=== PATIENT | female | born 1950 | race Caucasian/White ===

== ENCOUNTER 2017-12-24 05:27 | Emergency (ER) | payer MEDICARE ==
[~2017-12-24] VITALS: Ht 157.5 cm; Wt 75.0 kg
[~2017-12-24 05:27] MED LIST: FENO134C PO; MAXZ25 PO; PERC5TAB12 PO; PRAV40TA2 PO
[2017-12-24 05:29] VITALS: BP 194/95; PULSE 112; RESP 16; TEMP 98.7; O2SAT 98
[2017-12-24] MEDS ORDERED: SODIUM CHLORID 0.9% 500 ML INJ 500 ML IV ONE (06:00)
--- NOTE | 2017-12-24 06:14 | PD ---
HPI Chief Complaint: Abdominal Pain Time Seen by Provider: 05:34 Travel History International Travel<30 days: No Contact w/Intl Traveler<30days: No Traveled to known affect area: No History of Present Illness HPI The patient is a 67 year old female who presents to the [facility] emergency department with a history of intermittent abdominal cramps that she describes as a spasm type sensation in her intestines that began 3 days ago. The patient reports that she has not been able to move her bowels for 3 days. She reports that she does have a history of irritable bowel syndrome that is constipation predominant. The patient reports that her last bowel movement was also smaller than usual. She denies having any blood in her stool or black or tarry stools although she does report an interesting story about having maroon stool when she took Zithromax earlier in the year. The patient reports that it resolved after stopping the antibiotic and she read that this can be a side effect of the medicine. She denies ever having colonoscopy. She reports that she is fearful of the procedure. The patient reports having nausea today. She denies having any vomiting. She denies having any dysuria, urinary frequency, or urinary urgency associated with this. She reports that the abdominal pains are generalized. On review of systems otherwise, the patient denies having any known recent fevers, cough or congestion, neck pain, chest pain, shortness of breath, diarrhea or neurologic symptoms. FORMERLY [facility], [facility] Past Medical History Narrative Medical The patient's past medical history is significant for endometrial cancer status post hysterectomy in 2013, history of dyslipidemia, hypertension, irritable bowel syndrome-constipation predominant, history of mitral valve prolapse. Cancer: Yes (ENDOMETRIAL CA) Cardiovascular Problems: Yes (HX OF MITRAL VALVE PROLAPSE) High Cholesterol: Yes Diabetes: No Diminished Hearing: No Endocrine: No Gastrointestinal Disorders: Yes (IBS) Genitourinary: No Hepatitis: No Hiatal Hernia: No Hypertension: Yes Immune Disorder: No Musculoskeletal: Yes (PREVIOUS HNP CERVICAL SPINE) Neurologic: No Psychiatric: Yes (CLAUSTROPHOBIC) Reproductive: No Respiratory: No Immunizations Current: Yes Thyroid Disease: No Triglycerides - High: Yes Past Surgical History Narrative Surgical The patient's past surgical history is significant for dilation and curettage, hysterectomy. AICD: No Gynecologic Surgery: Yes (D & C) Hysterectomy: Yes Joint Replacement: No Pacemaker: No Social History Alcohol Use: No Tobacco Use: No Substance Use: No Allergies-Medications (Allergen,Severity, Reaction): Coded Allergies: sulfamethoxazole (Unverified Adverse Reaction, Intermediate, HOT FLASHES, NAUSEA, 12/24/17) trimethoprim (Unverified Adverse Reaction, Intermediate, HOT FLASHES, NAUSEA, 12/24/17) Reported Meds & Prescriptions Reported Meds & Active Scripts Active Reported Fenofibrate Micronized 134 Mg Cap 134 Mg PO HS Lipitor (Atorvastatin Calcium) 10 Mg Tab 10 Mg PO HS Aspirin 81 Mg Chew 81 Mg CHEW DAILY Review of Systems Except as stated in HPI: all other systems reviewed are Neg General / Constitutional: No: Fever Eyes: No: Visual changes HENT: No: Headaches Cardiovascular: No: Chest Pain or Discomfort Respiratory: No: Shortness of Breath Gastrointestinal: Positive: Nausea, Abdominal Pain, Constipation, Changes in Bowel Habits, No: Vomiting, Diarrhea, Indigestion, Loss of Appetite Genitourinary: No: Dysuria Musculoskeletal: No: Pain Skin: No Rash Neurologic: No: Weakness, Focal Abnormalities, Change in Mentation, Slurred Speech, Sensory Disturbance Psychiatric: No: Depression Endocrine: No: Polydipsia Hematologic/Lymphatic: No: Easy Bruising Physical Exam Narrative General: The patient is a well-developed well-nourished female in no acute distress. Head and Neck exam: Head is normocephalic atraumatic. Eyes: EOMI, pupils are equal round and reactive to light. Nose: Midline septum with pink mucous membranes Mouth: Dentition unremarkable. Moist mucus membranes. Posterior oropharynx is not erythematous. No tonsillar hypertrophy. Uvula midline. Airway patent. Neck: No palpable lymphadenopathy. No nuchal rigidity. No thyromegaly. Cardiovascular: Regular rate and rhythm without murmurs, gallops, or rubs. No pulse deficit to the extremities on simultaneous auscultation and palpation of her radial artery. Lungs: Clear to auscultation bilaterally. No wheezes, rhonchi, or rales. Abdomen: Soft, with tenderness reported on palpation of the suprapubic area, no other tenderness on palpation of the other quadrants of the abdomen. Normal bowel sounds are audible. No tenderness on palpation of McBurney's point. No guarding, rebound, or rigidity. Negative Torres sign. Extremities: No clubbing, cyanosis, or edema. 2+ pulses in all 4 extremities. No calf tenderness on palpation. Back: No spinous process tenderness to palpation. No costovertebral angle tenderness to palpation. Neurologic Exam: Grossly nonfocal. Skin Exam: No rash noted. Intact skin that is warm and dry. RECTAL EXAM: No masses or tenderness, no stool is present in the rectal vault. No palpable fecal impaction. The patient has mucus noted in the vault that is Hemoccult tested and noted to have streaks that are positive on Hemoccult testing. Data Data Last Documented VS Vital Signs Date Time Temp Pulse Resp B/P (MAP) Pulse Ox O2 Delivery O2 Flow Rate FiO2 12/24/17 10:15 12/24/17 07:35 104 20 98 Room Air 12/24/17 05:29 98.7 Orders Orders Electrocardiogram (12/24/17 05:46) Complete Blood Count With Diff (12/24/17 05:46) Comprehensive Metabolic Panel (12/24/17 05:46) C-Reactive Protein (Crp) (12/24/17 05:46) Lipase (12/24/17 05:46) Urinalysis - C+S If Indicated (12/24/17 05:46) Magnesium (Mg) (12/24/17 05:46) Iv Access Insert/Monitor (12/24/17 05:46) Ecg Monitoring (12/24/17 05:46) Oximetry (12/24/17 05:46) Sodium Chlorid 0.9% 500 Ml Inj (Ns 500 M (12/24/17 06:00) Ct Abd/Pel W Iv Contrast(Rout) (12/24/17 06:06) Iohexol 350 Inj (Omnipaque 350 Inj) (12/24/17 08:03) Ed Discharge Order (12/24/17 09:39) Labs Laboratory Tests Test 12/24/17 06:08 12/24/17 07:30 White Blood Count 10.9 TH/MM3 Red Blood Count 4.41 MIL/MM3 Hemoglobin 12.9 GM/DL Hematocrit 37.7 % Mean Corpuscular Volume 85.4 FL Mean Corpuscular Hemoglobin 29.3 PG Mean Corpuscular Hemoglobin Concent 34.3 % Red Cell Distribution Width 14.1 % Platelet Count 447 TH/MM3 Mean Platelet Volume 7.9 FL Neutrophils (%) (Auto) 72.8 % Lymphocytes (%) (Auto) 13.8 % Monocytes (%) (Auto) 9.5 % Eosinophils (%) (Auto) 3.0 % Basophils (%) (Auto) 0.9 % Neutrophils # (Auto) 8.0 TH/MM3 Lymphocytes # (Auto) 1.5 TH/MM3 Monocytes # (Auto) 1.0 TH/MM3 Eosinophils # (Auto) 0.3 TH/MM3 Basophils # (Auto) 0.1 TH/MM3 CBC Comment DIFF FINAL Differential Comment Blood Urea Nitrogen 13 MG/DL Creatinine 0.90 MG/DL Random Glucose 105 MG/DL Total Protein 8.1 GM/DL Albumin 3.9 GM/DL Calcium Level 9.6 MG/DL Magnesium Level 2.0 MG/DL Alkaline Phosphatase 120 U/L Aspartate Amino Transf (AST/SGOT) 51 U/L Alanine Aminotransferase (ALT/SGPT) 55 U/L Total Bilirubin 0.4 MG/DL Sodium Level 141 MEQ/L Potassium Level 3.6 MEQ/L Chloride Level 106 MEQ/L Carbon Dioxide Level 25.1 MEQ/L Anion Gap 10 MEQ/L Estimat Glomerular Filtration Rate 63 ML/MIN C-Reactive Protein 4.24 MG/DL Lipase 222 U/L Urine Color LIGHT-YELLOW Urine Turbidity CLEAR Urine pH 6.0 Urine Specific [place] 1.005 Urine Protein NEG mg/dL Urine Glucose (UA) NEG mg/dL Urine Ketones NEG mg/dL Urine Occult Blood NEG Urine Nitrite NEG Urine Bilirubin NEG Urine Urobilinogen LESS THAN 2.0 MG/DL Urine Leukocyte Esterase NEG Urine WBC LESS THAN 1 /hpf Urine Squamous Epithelial Cells <1 /hpf Microscopic Urinalysis Comment CULT NOT INDICATED MDM Medical Decision Making Medical Screen Exam Complete: Yes Emergency Medical Condition: Yes Medical Record Reviewed: Yes Differential Diagnosis Constipation, versus fecal impaction, versus diverticulitis, versus diverticulosis, versus colon cancer, versus AVM malformation Narrative Course During the course of the patient's emergency department visit, the patient's history, examination, and differential diagnosis were reviewed with the patient. The patient was placed on a registered nurse cardiac with oximetry and frequent blood pressure monitoring. The patient had IV access obtained and blood work sent for analysis. CT scan of the abdomen and pelvis has been ordered. The patient had an EKG done on arrival that shows a sinus rhythm heart rate of 95, QRS duration is 84 ms, QTC [address] segment elevation. T waves are inverted in V1, V2, V3, lead III. The patient was initially provided normal saline at 500 mL bolus 1. The patient's laboratory and imaging studies were pending at the conclusion of my shift. The patient's case was checked out to the oncoming emergency physician to disposition the patient based on the conclusion of her workup. [facility] Point of Care Internal Pos. & Neg. Controls: Passed Fecal Specimen Occult Blood: Positive Diagnosis Primary Impression: Abdominal pain Qualified Codes: R10.84 - Generalized abdominal pain Additional Impression: Constipation Qualified Codes: K59.00 - Constipation, unspecified Uma Morgan MD December 24, 2017 06:14
[2017-12-24 06:43] LABS: BASOPHIL # 0.1 TH/MM3 (0-0.2); BASOPHIL % 0.9 % (0.0-2.0); EOSINOPHIL # 0.3 TH/MM3 (0-0.4); HEMATOCRIT 37.7 % (35.0-46.0); HEMOGLOBIN 12.9 GM/DL (11.6-15.3); LYMPH % 13.8 % (9.0-44.0); LYMPHOCYTE # 1.5 TH/MM3 (1.0-4.8); MEAN CELL VOLUME 85.4 FL (80.0-100.0); MEAN CORPUSCULAR HEMOGLOBIN 29.3 PG (27.0-34.0); MEAN CORPUSCULAR HGB CONC 34.3 % (32.0-36.0); MEAN PLATELET VOLUME 7.9 FL (7.0-11.0); MONO % 9.5 % (0.0-8.0); NEUT % 72.8 % (16.0-70.0); PLATELET COUNT 447 TH/MM3 (150-450); RED BLOOD COUNT 4.41 MIL/MM3 (4.00-5.30); RED CELL DISTRIBUTION WIDTH 14.1 % (11.6-17.2); WHITE BLOOD COUNT 10.9 TH/MM3 (4.0-11.0)
[2017-12-24 06:59] LABS: ALBUMIN 3.9 GM/DL (3.4-5.0); ALT (GPT) 55 U/L (10-53); AST (GOT) 51 U/L (15-37); BICARBONATE 25.1 MEQ/L (21.0-32.0); BLOOD UREA NITROGEN 13 MG/DL (7-18); CALCIUM 9.6 MG/DL (8.5-10.1); CHLORIDE 106 MEQ/L (98-107); GLOMERULAR FILTRATION RATE 63 ML/MIN (>89); GLUCOSE,RANDOM 105 MG/DL (74-106); SODIUM (NA) 141 MEQ/L (136-145)
[2017-12-24 07:02] LABS: ALKALINE PHOSPHATASE 120 U/L (45-117); C-REACTIVE PROTEIN 4.24 MG/DL (0.00-0.30); TOTAL BILIRUBIN ADULT 0.4 MG/DL (0.2-1.0); TOTAL PROTEIN 8.1 GM/DL (6.4-8.2)
[2017-12-24 07:35] VITALS: BP 195/100; PULSE 104; RESP 20; O2SAT 97; O2SAT 98
[2017-12-24] MEDS ORDERED: ASPI-516 CHEW (07:39)
[2017-12-24] MEDS ORDERED: LIPI10TA PO (07:39)
[2017-12-24] MEDS ORDERED: FENO134C PO (07:39)
[2017-12-24] MEDS ORDERED: IOHEXOL 350 MG/ML 10 ML VIAL (for RAD DIAG) IVCONTRAST ONE (08:03)
[2017-12-24 08:12] LABS: BILIRUBIN, URINE NEG (NEG); BLOOD, URINE NEG (NEG); GLUCOSE,URINE NEG (NEG); KETONE, URINE NEG (NEG); NITRITE,URINE NEG (NEG); SQUAMOUS EPITHELIAL CELL URINE <1 /hpf (0-5); URINE COLOR LIGHT-YELLOW (YELLW/STRAW); URINE LEUKOCYTE ESTERASE NEG (NEG)
--- NOTE | 2017-12-24 08:18 | RADRPT ---
EXAM DATE: 12/24/2017 8:01 AM EDT AGE/SEX: 67 years / Female INDICATIONS: Possible obstruction, abdominal cramping CLINICAL DATA: This is the patient's initial encounter. Patient reports that signs and symptoms have been present for 3 days and indicates a pain score of 4/10. MEDICAL/SURGICAL HISTORY: Cardiovascular disease. Hypertension. Irritable bowel syndrome. en dometrial cancer Hysterectomy. ORAL CONTRAST: No oral contrast ingested. RADIATION DOSE: 7.75 CTDI (mGy) COMPARISON: None available. TECHNIQUE: Multiple contiguous axial images were obtained through the abdomen and pelvis following b olus infusion of 94 ml Omnipaque 350 (iohexol) nonionic water-soluble contrast as a single exam dos e. No oral contrast ingested. Using automated exposure control and adjustment of the mA and/or kV ac cording to patient size, the radiation dose was kept as low as reasonably achievable to obtain optima l diagnostic quality images. FINDINGS: Lower Lungs: The visualized lower lungs are clear. Liver: The liver contains multiple low-density masses most consistent with metastatic disease. The la rgest measures 2.9 x 2.6 cm within the medial segment of the left lobe. Multiple other smaller masses are seen. There is no dilation of the biliary tree. Spleen: Homogeneous density without enlargement. Pancreas: Unremarkable without mass or calcification. Kidneys: Normal in size and shape. No evidence of mass or hydronephrosis. Adrenal Glands: Unremarkable. Aorta: The aorta and proximal iliac vessels are grossly unremarkable without aneurysmal dilation. Bowel/Mesentery: Circumferential wall thickening within the splenic flexure likely secondary to prim hilda carcinoma. Proximal to this lesion is some mild dilatation of the transverse colon. Minimal adjac ent inflammatory changes. There is diverticulosis of the colon. Abdominal Wall: Intact. Retroperitoneum: No evidence of adenopathy in the retrocrural, para-aortic, or deep pelvic regions. Bladder: Contours are smooth. Reproductive Organs: No abnormal masses or calcifications seen. Inguinal: The inguinal region is unremarkable without evidence of adenopathy. Bony Structures: Unremarkable. CONCLUSION: 1. Circumferential wall thickening within the splenic flexure concerning for colonic adenocarcinoma. Colonoscopy recommended. 2. Multiple metastatic lesions throughout the liver. 3. Diverticulosis of the colon. Electronically signed by: Manpreet Funez MD 12/24/2017 8:17 AM EDT
--- NOTE | 2017-12-24 09:42 | PD ---
Physical Exam Narrative GENERAL: 67-year-old female in no apparent distress SKIN: Focused skin assessment warm/dry. HEAD: Atraumatic. Normocephalic. EYES: Pupils equal and round. No scleral icterus. No injection or drainage. ENT: No nasal bleeding or discharge. Mucous membranes pink and moist. NECK: Trachea midline. No JVD. CARDIOVASCULAR: Regular rate and rhythm. RESPIRATORY: No accessory muscle use. No increased effort GASTROINTESTINAL: Abdomen soft, non-tender, nondistended MUSCULOSKELETAL: No obvious deformities. No clubbing. No cyanosis. No edema. NEUROLOGICAL: Awake and alert. No obvious cranial nerve deficits. Motor grossly within normal limits. Normal speech. PSYCHIATRIC: Appropriate mood and affect; insight and judgment normal. Data Data Last Documented VS Vital Signs Date Time Temp Pulse Resp B/P (MAP) Pulse Ox O2 Delivery O2 Flow Rate FiO2 12/24/17 07:35 104 20 195/100 (131) 98 Room Air 12/24/17 05:29 98.7 Orders Orders Electrocardiogram (12/24/17 05:46) Complete Blood Count With Diff (12/24/17 05:46) Comprehensive Metabolic Panel (12/24/17 05:46) C-Reactive Protein (Crp) (12/24/17 05:46) Lipase (12/24/17 05:46) Urinalysis - C+S If Indicated (12/24/17 05:46) Magnesium (Mg) (12/24/17 05:46) Iv Access Insert/Monitor (12/24/17 05:46) Ecg Monitoring (12/24/17 05:46) Oximetry (12/24/17 05:46) Sodium Chlorid 0.9% 500 Ml Inj (Ns 500 M (12/24/17 06:00) Ct Abd/Pel W Iv Contrast(Rout) (12/24/17 06:06) Iohexol 350 Inj (Omnipaque 350 Inj) (12/24/17 08:03) Ed Discharge Order (12/24/17 09:39) Labs Laboratory Tests Test 12/24/17 06:08 12/24/17 07:30 White Blood Count 10.9 TH/MM3 Red Blood Count 4.41 MIL/MM3 Hemoglobin 12.9 GM/DL Hematocrit 37.7 % Mean Corpuscular Volume 85.4 FL Mean Corpuscular Hemoglobin 29.3 PG Mean Corpuscular Hemoglobin Concent 34.3 % Red Cell Distribution Width 14.1 % Platelet Count 447 TH/MM3 Mean Platelet Volume 7.9 FL Neutrophils (%) (Auto) 72.8 % Lymphocytes (%) (Auto) 13.8 % Monocytes (%) (Auto) 9.5 % Eosinophils (%) (Auto) 3.0 % Basophils (%) (Auto) 0.9 % Neutrophils # (Auto) 8.0 TH/MM3 Lymphocytes # (Auto) 1.5 TH/MM3 Monocytes # (Auto) 1.0 TH/MM3 Eosinophils # (Auto) 0.3 TH/MM3 Basophils # (Auto) 0.1 TH/MM3 CBC Comment DIFF FINAL Differential Comment Blood Urea Nitrogen 13 MG/DL Creatinine 0.90 MG/DL Random Glucose 105 MG/DL Total Protein 8.1 GM/DL Albumin 3.9 GM/DL Calcium Level 9.6 MG/DL Magnesium Level 2.0 MG/DL Alkaline Phosphatase 120 U/L Aspartate Amino Transf (AST/SGOT) 51 U/L Alanine Aminotransferase (ALT/SGPT) 55 U/L Total Bilirubin 0.4 MG/DL Sodium Level 141 MEQ/L Potassium Level 3.6 MEQ/L Chloride Level 106 MEQ/L Carbon Dioxide Level 25.1 MEQ/L Anion Gap 10 MEQ/L Estimat Glomerular Filtration Rate 63 ML/MIN C-Reactive Protein 4.24 MG/DL Lipase 222 U/L Urine Color LIGHT-YELLOW Urine Turbidity CLEAR Urine pH 6.0 Urine Specific [place] 1.005 Urine Protein NEG mg/dL Urine Glucose (UA) NEG mg/dL Urine Ketones NEG mg/dL Urine Occult Blood NEG Urine Nitrite NEG Urine Bilirubin NEG Urine Urobilinogen LESS THAN 2.0 MG/DL Urine Leukocyte Esterase NEG Urine WBC LESS THAN 1 /hpf Urine Squamous Epithelial Cells <1 /hpf Microscopic Urinalysis Comment CULT NOT INDICATED MDM Supervised Visit with ERIC: No Interpretation(s) Last 24 hours Impressions Abdomen/Pelvis CT 12/24/17 0606 Signed Impressions: CONCLUSION: 1. Circumferential wall thickening within the splenic flexure concerning for c olonic adenocarcinoma. Colonoscopy recommended. 2. Multiple metastatic lesions throughout the liver. 3. Diverticulosis of the colon. Narrative Course Signed over to me to follow CT and reevaluate. CT shows concerning area for adenocarcinoma with metastatic liver lesions. Discussed with colorectal surgeon who will facilitate outpatient follow-up for biopsy and further care. Patient updated and given copy of CT report with at bedside. She agrees to outpatient plan of care. Physician Communication Physician Communication dr yañez states to have follow in office, will coordinate biopsy and further care Diagnosis Primary Impression: Colon wall thickening Additional Impression: Lesion of liver Referrals: Maksim Yañez MD call for appointment Patient Instructions: General Instructions Additional Instruction: return as needed, follow with dr yañez for initiation of your workup, keep blood pressure log Med/Other Pt SpecificInfo: No Change to Meds Disposition: 01 DISCHARGE HOME Condition: Stable Sangeeta Barnard MD December 24, 2017 09:42
--- NOTE | 2017-12-24 14:04 | EKG ---
Date Performed: 12/24/2017 Time Performed: 06:30:19 PTAGE: 67 years EKG: Sinus rhythm NONSPECIFIC ST & T-WAVE ABNORMALITY BORDERLINE ECG NO PREVIOUS TRACING DOCTOR: Cheko Vo Interpretating Date/Time 12/27/2017 07:43:01
== END 2017-12-24 10:16 | disposition home or self-care (01) ==
LOC: NEPE 05:27
DX: K63.89 Other specified diseases of intestine (principal); K76.9 Liver disease, unspecified; K57.30 Diverticulosis of large intestine without perforation or abscess without bleeding; K58.9 Irritable bowel syndrome, unspecified; E78.00 Pure hypercholesterolemia, unspecified; R94.31 Abnormal electrocardiogram [ECG] [EKG]
CPT/HCPCS: 74177; 80053; 81001; 83690; 83735; 85025; 86140; 93005; 96360; 99285; J7040; Q9967

== ENCOUNTER 2017-12-25 15:35 | Inpatient (IN) | payer MEDICARE ==
[~2017-12-25] VITALS: Ht 157.5 cm; Wt 80.9 kg
[~2017-12-25 15:35] MED LIST changes: +ASPI-516 CHEW; +LIPI10TA PO; -MAXZ25 PO; -PERC5TAB12 PO; -PRAV40TA2 PO
[2017-12-25 15:41] VITALS: BP 200/102; PULSE 116; RESP 18; TEMP 98.5; O2SAT 97
[2017-12-25] MEDS ORDERED: SODIUM CHLOR 0.9% 1000 ML INJ 1,000 ML IV SCH (16:09)
[2017-12-25] MEDS ORDERED: ONDANSETRON ODT 4 MG TAB PO ONE (16:15)
--- NOTE | 2017-12-25 16:16 | PD ---
HPI Chief Complaint: GI Complaint Time Seen by Provider: 15:56 Travel History International Travel<30 days: No Contact w/Intl Traveler<30days: No Traveled to known affect area: No History of Present Illness HPI Patient is a 67-year-old female who returns to the hospital for evaluation of abdominal pain with constipation. Patient reports that for the past 5 days, she has been having abdominal pain and has been constipated. Patient reports that she was seen in the emergency room yesterday, reports that she was told that she had metastatic liver disease as well as concerns for colonic adenocarcinoma, reports that after her ER visit, she made an appointment Dr. Yañez with colorectal surgery, reports that she has an appointment tomorrow with him. Reports that since her discharge, she has not been feeling any better. Reports that she took mag citrate to help with a bowel movement and ended up nauseous and having multiple episodes of vomiting today. Patient reports overall decreased p.o. intake due to her abdominal pain. Patient reports concerns for possible obstruction. Patient does have past history of hysterectomy in the past due to endometrial cancer. Patient denies any fever chills, reports normal bowel movements at baseline. PFSH Past Medical History Cancer: Yes (ENDOMETRIAL CA) Cardiovascular Problems: Yes (HX OF MITRAL VALVE PROLAPSE) High Cholesterol: Yes Diabetes: No Diminished Hearing: No Endocrine: No Gastrointestinal Disorders: Yes (IBS) Genitourinary: No Hepatitis: No Hiatal Hernia: No Hypertension: Yes Immune Disorder: No Musculoskeletal: Yes (PREVIOUS HNP CERVICAL SPINE) Neurologic: No Psychiatric: Yes (CLAUSTROPHOBIC) Reproductive: No Respiratory: No Immunizations Current: Yes Thyroid Disease: No Triglycerides - High: Yes ?: Not Past Surgical History AICD: No Gynecologic Surgery: Yes (D & C) Hysterectomy: Yes Joint Replacement: No Pacemaker: No Other Surgery: Yes Social History Alcohol Use: No Tobacco Use: No Substance Use: No Allergies-Medications (Allergen,Severity, Reaction): Coded Allergies: sulfamethoxazole (Unverified Adverse Reaction, Intermediate, HOT FLASHES, NAUSEA, 12/24/17) trimethoprim (Unverified Adverse Reaction, Intermediate, HOT FLASHES, NAUSEA, 12/24/17) Reported Meds & Prescriptions Reported Meds & Active Scripts Active Reported Fenofibrate Micronized 134 Mg Cap 134 Mg PO HS Lipitor (Atorvastatin Calcium) 10 Mg Tab 10 Mg PO HS Aspirin 81 Mg Chew 81 Mg CHEW DAILY Review of Systems General / Constitutional: No: Fever Eyes: No: Visual changes HENT: No: Headaches Cardiovascular: No: Chest Pain or Discomfort Respiratory: No: Shortness of Breath Gastrointestinal: Positive: Nausea, Vomiting, Abdominal Pain, Constipation Genitourinary: No: Dysuria Musculoskeletal: No: Pain Skin: No Rash Neurologic: No: Weakness Psychiatric: No: Depression Endocrine: No: Polydipsia Hematologic/Lymphatic: No: Easy Bruising Physical Exam Narrative GENERAL: moderate distress SKIN: Focused skin assessment warm/dry. HEAD: Atraumatic. Normocephalic. EYES: Pupils equal and round. No scleral icterus. No injection or drainage. ENT: No nasal bleeding or discharge. Mucous membranes pink and moist. NECK: Trachea midline. No JVD. CARDIOVASCULAR: Regular rate and rhythm. No murmur appreciated. RESPIRATORY: No accessory muscle use. Clear to auscultation. Breath sounds equal bilaterally. GASTROINTESTINAL: Abdomen soft, non-tender, nondistended. Hepatic and splenic margins not palpable. RECTAL EXAM: performed with RN at bedside, patient with no stool in rectal vault , no fecal impaction MUSCULOSKELETAL: No obvious deformities. No clubbing. No cyanosis. No edema. NEUROLOGICAL: Awake and alert. No obvious cranial nerve deficits. Motor grossly within normal limits. Normal speech. PSYCHIATRIC: Appropriate mood and affect; insight and judgment normal. Data Data Last Documented VS Vital Signs Date Time Temp Pulse Resp B/P (MAP) Pulse Ox O2 Delivery O2 Flow Rate FiO2 12/25/17 17:45 96 15 179/84 (115) 99 Room Air 12/25/17 15:41 98.5 Orders Orders Complete Blood Count With Diff (12/25/17 16:09) Comprehensive Metabolic Panel (12/25/17 16:09) Lipase (12/25/17 16:09) Lactic Acid (12/25/17 16:09) Prothrombin Time / Inr (Pt) (12/25/17 16:09) Act Partial Throm Time (Ptt) (12/25/17 16:09) Iv Access Insert/Monitor (12/25/17 16:09) Ecg Monitoring (12/25/17 16:09) Oximetry (12/25/17 16:09) Sodium Chlor 0.9% 1000 Ml Inj (Ns 1000 M (12/25/17 16:09) Sodium Chloride 0.9% Flush (Ns Flush) (12/25/17 16:15) Ondansetron Odt (Zofran Odt) (12/25/17 16:15) Abdomen, Kub Only (12/25/17 ) Morphine Inj (Morphine Inj) (12/25/17 17:30) Metoclopramide Inj (Reglan Inj) (12/25/17 17:30) Admit To Inpatient (12/25/17 ) Vital Signs (Adult) LUCIA.Q4H (12/25/17 18:06) Activity Oob With Assistance (12/25/17 18:06) Inpatient Certification (12/25/17 ) Npo After Midnight W/ Po Meds (12/25/17 Dinner) Labs Laboratory Tests Test 12/25/17 16:30 White Blood Count 12.0 TH/MM3 Red Blood Count 4.73 MIL/MM3 Hemoglobin 13.6 GM/DL Hematocrit 40.7 % Mean Corpuscular Volume 86.1 FL Mean Corpuscular Hemoglobin 28.8 PG Mean Corpuscular Hemoglobin Concent 33.4 % Red Cell Distribution Width 14.1 % Platelet Count 525 TH/MM3 Mean Platelet Volume 7.7 FL Neutrophils (%) (Auto) 84.8 % Lymphocytes (%) (Auto) 8.9 % Monocytes (%) (Auto) 5.6 % Eosinophils (%) (Auto) 0.2 % Basophils (%) (Auto) 0.5 % Neutrophils # (Auto) 10.1 TH/MM3 Lymphocytes # (Auto) 1.1 TH/MM3 Monocytes # (Auto) 0.7 TH/MM3 Eosinophils # (Auto) 0.0 TH/MM3 Basophils # (Auto) 0.1 TH/MM3 CBC Comment DIFF FINAL Differential Comment Prothrombin Time 10.7 SEC Prothromb Time International Ratio 1.1 RATIO Activated Partial Thromboplast Time 23.3 SEC Blood Urea Nitrogen 15 MG/DL Creatinine 0.85 MG/DL Random Glucose 102 MG/DL Total Protein 8.7 GM/DL Albumin 4.2 GM/DL Calcium Level 9.7 MG/DL Alkaline Phosphatase 113 U/L Aspartate Amino Transf (AST/SGOT) 37 U/L Alanine Aminotransferase (ALT/SGPT) 45 U/L Total Bilirubin 0.4 MG/DL Sodium Level 141 MEQ/L Potassium Level 3.9 MEQ/L Chloride Level 102 MEQ/L Carbon Dioxide Level 26.7 MEQ/L Anion Gap 12 MEQ/L Estimat Glomerular Filtration Rate 67 ML/MIN Lactic Acid Level 1.3 mmol/L Lipase 191 U/L MDM Medical Decision Making Medical Screen Exam Complete: Yes Emergency Medical Condition: Yes Medical Record Reviewed: Yes Interpretation(s) Vital Signs Date Time Temp Pulse Resp B/P (MAP) Pulse Ox O2 Delivery O2 Flow Rate FiO2 12/25/17 15:41 98.5 116 18 200/102 (134) 97 Differential Diagnosis constipation, metastatic cancer, small bowel obstruction, mesenteric ischemia Narrative Course During the course of the patients emergency department visit, the patients history, examination, and differential diagnosis were reviewed with the patient. The patient was placed on a edge trimmer with oximetry and frequent blood pressure monitoring. The patient had an IV access obtained and blood work sent for analysis. Vital Signs Date Time Temp Pulse Resp B/P (MAP) Pulse Ox O2 Delivery O2 Flow Rate FiO2 12/25/17 15:41 98.5 116 18 200/102 (134) 97 A rectal exam was performed to evaluate for possible fecal impaction - there was no stool in rectal vault The patient was initially provided IVF as well as zofran odt. The patients laboratory studies were reviewed and remarkable for Laboratory Tests Test 12/25/17 16:30 White Blood Count 12.0 TH/MM3 (4.0-11.0) Red Blood Count 4.73 MIL/MM3 (4.00-5.30) Hemoglobin 13.6 GM/DL (11.6-15.3) Hematocrit 40.7 % (35.0-46.0) Mean Corpuscular Volume 86.1 FL (80.0-100.0) Mean Corpuscular Hemoglobin 28.8 PG (27.0-34.0) Mean Corpuscular Hemoglobin Concent 33.4 % (32.0-36.0) Red Cell Distribution Width 14.1 % (11.6-17.2) Platelet Count 525 TH/MM3 (150-450) Mean Platelet Volume 7.7 FL (7.0-11.0) Neutrophils (%) (Auto) 84.8 % (16.0-70.0) Lymphocytes (%) (Auto) 8.9 % (9.0-44.0) Monocytes (%) (Auto) 5.6 % (0.0-8.0) Eosinophils (%) (Auto) 0.2 % (0.0-4.0) Basophils (%) (Auto) 0.5 % (0.0-2.0) Neutrophils # (Auto) 10.1 TH/MM3 (1.8-7.7) Lymphocytes # (Auto) 1.1 TH/MM3 (1.0-4.8) Monocytes # (Auto) 0.7 TH/MM3 (0-0.9) Eosinophils # (Auto) 0.0 TH/MM3 (0-0.4) Basophils # (Auto) 0.1 TH/MM3 (0-0.2) CBC Comment DIFF FINAL Differential Comment Prothrombin Time 10.7 SEC (9.8-11.6) Prothromb Time International Ratio 1.1 RATIO Activated Partial Thromboplast Time 23.3 SEC (24.3-30.1) Blood Urea Nitrogen 15 MG/DL (7-18) Creatinine 0.85 MG/DL (0.50-1.00) Random Glucose 102 MG/DL (74-106) Total Protein 8.7 GM/DL (6.4-8.2) Albumin 4.2 GM/DL (3.4-5.0) Calcium Level 9.7 MG/DL (8.5-10.1) Alkaline Phosphatase 113 U/L (45-117) Aspartate Amino Transf (AST/SGOT) 37 U/L (15-37) Alanine Aminotransferase (ALT/SGPT) 45 U/L (10-53) Total Bilirubin 0.4 MG/DL (0.2-1.0) Sodium Level 141 MEQ/L (136-145) Potassium Level 3.9 MEQ/L (3.5-5.1) Chloride Level 102 MEQ/L (98-107) Carbon Dioxide Level 26.7 MEQ/L (21.0-32.0) Anion Gap 12 MEQ/L (5-15) Estimat Glomerular Filtration Rate 67 ML/MIN (>89) Lactic Acid Level 1.3 mmol/L (0.4-2.0) Lipase 191 U/L (73-393) Radiology studies were reviewed and remarkable for Last Impressions Abdomen X-Ray 12/25/17 0000 Signed Impressions: CONCLUSION: Unremarkable bowel gas pattern. Reports that she is more comfortable after the pain meds were given, I am hesitant to obtain another CT abdomen and pelvis given she had one yesterday. Plan to admit her to the hospital for intractable abdominal pain, I did review case with Dr. Truong who accepts patient to his service Diagnosis Primary Impression: Intractable abdominal pain Admitting Information Admitting Physician Requests: Ilda Rocha DO December 25, 2017 16:16
[2017-12-25 16:54] LABS: AUTOMATED NEUTROPHIL # 10.1 TH/MM3 (1.8-7.7); BASOPHIL # 0.1 TH/MM3 (0-0.2); BASOPHIL % 0.5 % (0.0-2.0); EOSINOPHIL % 0.2 % (0.0-4.0); HEMATOCRIT 40.7 % (35.0-46.0); HEMOGLOBIN 13.6 GM/DL (11.6-15.3); LYMPH % 8.9 % (9.0-44.0); LYMPHOCYTE # 1.1 TH/MM3 (1.0-4.8); MEAN CELL VOLUME 86.1 FL (80.0-100.0); MEAN CORPUSCULAR HEMOGLOBIN 28.8 PG (27.0-34.0); MEAN CORPUSCULAR HGB CONC 33.4 % (32.0-36.0); MEAN PLATELET VOLUME 7.7 FL (7.0-11.0); MONO % 5.6 % (0.0-8.0); MONOCYTE # 0.7 TH/MM3 (0-0.9); NEUT % 84.8 % (16.0-70.0); PLATELET COUNT 525 TH/MM3 (150-450); RED BLOOD COUNT 4.73 MIL/MM3 (4.00-5.30); RED CELL DISTRIBUTION WIDTH 14.1 % (11.6-17.2)
[2017-12-25 17:06] LABS: INTERNATIONAL NORMALIZED RATIO 1.1 RATIO; PROTHROMBIN TIME - PATIENT 10.7 SEC (9.8-11.6)
[2017-12-25] MEDS: SODIUM CHLORIDE 0.9% FLUSH 10 ML FLUSH IV FLUSH PRN ×2 (17:19→21:23)
[2017-12-25] MEDS ORDERED: METOCLOPRAMIDE HCL 10 MG/2 ML VIAL IV PUSH ONE (17:30)
[2017-12-25] MEDS ORDERED: MORPHINE SULFATE 4 MG/ML INJ IV PUSH ONE (17:30)
[2017-12-25 17:38] LABS: ALBUMIN 4.2 GM/DL (3.4-5.0); ALT (GPT) 45 U/L (10-53); AST (GOT) 37 U/L (15-37); BICARBONATE 26.7 MEQ/L (21.0-32.0); BLOOD UREA NITROGEN 15 MG/DL (7-18); CALCIUM 9.7 MG/DL (8.5-10.1); CHLORIDE 102 MEQ/L (98-107); CREATININE 0.85 MG/DL (0.50-1.00); GLOMERULAR FILTRATION RATE 67 ML/MIN (>89); GLUCOSE,RANDOM 102 MG/DL (74-106); SODIUM (NA) 141 MEQ/L (136-145)
[2017-12-25 17:40] LABS: ALKALINE PHOSPHATASE 113 U/L (45-117); TOTAL BILIRUBIN ADULT 0.4 MG/DL (0.2-1.0); TOTAL PROTEIN 8.7 GM/DL (6.4-8.2)
[2017-12-25 17:45] VITALS: BP 179/84; PULSE 96; RESP 15; O2SAT 99
--- NOTE | 2017-12-25 17:55 | RADRPT ---
EXAM DATE: 12/25/2017 5:38 PM EDT AGE/SEX: 67 years / Female INDICATIONS: Abdominal pain, possible obstruction. CLINICAL DATA: This is the patient's sequela encounter. Patient reports that signs and symptoms have been present for 4 - 6 days and indicates a pain score of 10/10. MEDICAL/SURGICAL HISTORY: Carcinoma, colon. Carcinoma, breast. IBS. None. COMPARISON: No prior [facility] exams available for comparison. ] FINDINGS: The abdominal bowel gas pattern is normal. No abnormal masses, calcifications, or organomegaly is s een. The osseous structures are unremarkable. CONCLUSION: Unremarkable bowel gas pattern. Electronically signed by: Martin Holguin MD 12/25/2017 5:54 PM EDT
[2017-12-25] MEDS ORDERED: DEXT 5%-NACL 0.45% 1000 ML INJ 1,000 ML IV SCH (18:30)
[2017-12-25] MEDS ORDERED: METHYLNALTREXONE BROMIDE 12 MG/0.6 ML VIAL SQ ONE (18:30)
--- NOTE | 2017-12-25 18:31 | HHI.HP ---
[facility] Physician Wendy Andrade MD Admission Diagnosis Intractable abdominal pain Diagnoses: Chief Complaint: Abdominal pain Travel History International Travel<30 Days: No Contact w/Intl Traveler <30 Da: No Traveled to Known Affected Are: No History of Present Illness 67-year-old white female being admitted for intractable abdominal pain. Patient was in her usual state of health being discharged from the emergency department yesterday for abdominal pain secondary to suspected colorectal cancer. She went home to try to deal with abdominal pain but it worsened in intensity and when she tried to ingest anything other than water she would vomit it including some V8 tomato juice. She tried also some MiraLAX and local magnesia and some citrate and she also vomited this as well. She has not eaten anything for a few days and still has no appetite. Denies any fevers. Still has not had a bowel movement, has not had a bowel movement since last Saturday which is about 5 days ago. Patient describes her pain at worst out of a 6/10 intensity and describes it as a gas-like pain. She denies ever having had a colonoscopy done even though she reports that her has reminded her multiple times. Denies any family history of colorectal cancer. Had a CT scan performed yesterday and ER visit which showed lesions suspicious for colorectal cancer with possible liver metastases. Had a outpatient appointment scheduled Dr. Yañez tomorrow but obviously will not be able to make it due to presenting to the ER was intractable symptoms. Had x-ray done of her abdomen today which shows no free air. Patient has a history of endometrial cancer which was managed with hysterectomy back in 2013 with no adjunctive treatment needed. Review of Systems Except as stated in HPI: all other systems reviewed are Neg Past Family Social History Past Medical History HTN HYL endometrial CA Allergies: Coded Allergies: sulfamethoxazole (Unverified Adverse Reaction, Intermediate, HOT FLASHES, NAUSEA, 12/24/17) trimethoprim (Unverified Adverse Reaction, Intermediate, HOT FLASHES, NAUSEA, 12/24/17) Social History smoked only as a teenager, retired [employer] Physical Exam Vital Signs Vital Signs Date Time Temp Pulse Resp B/P (MAP) Pulse Ox O2 Delivery O2 Flow Rate FiO2 12/25/17 17:45 96 15 179/84 (115) 99 Room Air 12/25/17 15:41 98.5 116 18 200/102 (134) 97 Physical Exam VS: afebrile GENERAL: Middle-aged white female, sitting up in bed, awake and alert, no acute distress SKIN: Warm and dry. EYES: No scleral icterus. No injection or drainage. ENT: No nasal bleeding or discharge. Mucous membranes pink and moist. CARDIOVASCULAR: Regular rate and rhythm. no murmurs RESPIRATORY: No accessory muscle use. Clear to auscultation. Breath sounds equal bilaterally. GASTROINTESTINAL: Abdomen soft, mild to moderate tenderness to palpation over epigastrium and right sided quadrants Extremities: No clubbing, cyanosis, or edema. No obvious deformities. MUSCULOSKELETAL: adequate muscle bulk and tone for age and habitus NEUROLOGICAL: Awake and alert. No obvious cranial nerve deficits. No facial droop nor slurred speech noted. PSYCHIATRIC: Appropriate mood and affect; insight and judgment normal. Laboratory Laboratory Tests Test 12/25/17 16:30 White Blood Count 12.0 Red Blood Count 4.73 Hemoglobin 13.6 Hematocrit 40.7 Mean Corpuscular Volume 86.1 Mean Corpuscular Hemoglobin 28.8 Mean Corpuscular Hemoglobin Concent 33.4 Red Cell Distribution Width 14.1 Platelet Count 525 Mean Platelet Volume 7.7 Neutrophils (%) (Auto) 84.8 Lymphocytes (%) (Auto) 8.9 Monocytes (%) (Auto) 5.6 Eosinophils (%) (Auto) 0.2 Basophils (%) (Auto) 0.5 Neutrophils # (Auto) 10.1 Lymphocytes # (Auto) 1.1 Monocytes # (Auto) 0.7 Eosinophils # (Auto) 0.0 Basophils # (Auto) 0.1 CBC Comment DIFF FINAL Differential Comment Prothrombin Time 10.7 Prothromb Time International Ratio 1.1 Activated Partial Thromboplast Time 23.3 Blood Urea Nitrogen 15 Creatinine 0.85 Random Glucose 102 Total Protein 8.7 Albumin 4.2 Calcium Level 9.7 Alkaline Phosphatase 113 Aspartate Amino Transf (AST/SGOT) 37 Alanine Aminotransferase (ALT/SGPT) 45 Total Bilirubin 0.4 Sodium Level 141 Potassium Level 3.9 Chloride Level 102 Carbon Dioxide Level 26.7 Anion Gap 12 Estimat Glomerular Filtration Rate 67 Lactic Acid Level 1.3 Lipase 191 Result Diagram: 12/25/17 1630 12/25/17 1630 Imaging Last Impressions Abdomen X-Ray 12/25/17 0000 Signed Impressions: CONCLUSION: Unremarkable bowel gas pattern. Caprini VTE Risk Assessment Caprini VTE Risk Assessment: Mod/High Risk (score >= 2) VTE Pharm Contraindication: Caprini Risk Assessment Model Point Value = 1 Point Value = 2 Point Value = 3 Point Value = 5 Age 41-60 Minor surgery BMI > 25 kg/m2 Swollen legs Varicose veins or History of unexplained or recurrent spontaneous Oral contraceptives or hormone replacement Sepsis (< 1 month) Serious lung disease, including pneumonia (< 1 month) Abnormal pulmonary function Acute myocardial infarction Congestive heart failure (< 1 month) History of inflammatory bowel disease Medical patient at bed rest Age 61-74 Arthroscopic surgery Major open surgery (> 45 min) Laparoscopic surgery (> 45 min) Malignancy Confined to bed (> 72 hours) Immobilizing plaster cast Central venous access Age >= 75 History of VTE Family history of VTE Factor V Leiden Prothrombin [id number] Lupus anticoagulant Anticardiolipin antibodies Elevated serum homocysteine Heparin-induced thrombocytopenia Other congenital or acquired thrombophilia Stroke (< 1 month) Elective arthroplasty Hip, pelvis, or leg fracture Acute spinal cord injury (< 1 month) Prophylaxis Regimen Total Risk Factor Score Risk Level Prophylaxis Regimen 0-1 Low Early ambulation 2 Moderate Order ONE of the following: *Sequential Compression Device (SCD) *Heparin 5000 units SQ BID 3-4 Higher Order ONE of the following medications: *Heparin 5000 units SQ TID *Enoxaparin/Lovenox 40 mg SQ daily (WT < 150 kg, CrCl > 30 mL/min) *Enoxaparin/Lovenox 30 mg SQ daily (WT < 150 kg, CrCl > 10-29 mL/min) *Enoxaparin/Lovenox 30 mg SQ BID (WT < 150 kg, CrCl > 30 mL/min) AND/OR *Sequential Compression Device (SCD) 5 or more Highest Order ONE of the following medications: *Heparin 5000 units SQ TID (Preferred with Epidurals) *Enoxaparin/Lovenox 40 mg SQ daily (WT < 150 kg, CrCl > 30 mL/min) *Enoxaparin/Lovenox 30 mg SQ daily (WT < 150 kg, CrCl > 10-29 mL/min) *Enoxaparin/Lovenox 30 mg SQ BID (WT < 150 kg, CrCl > 30 mL/min) AND *Sequential Compression Device (SCD) Assessment and Plan Assessment and Plan Intractable nausea and postprandial vomiting - likely secondary to possible adenocarcinoma lives with metastases with now possible obstruction (not evident on CT scan yesterday at that time) - discussed case with Dr. Yañez over the phone, plans to see the patient tomorrow while hospitalized. I will make patient n.p.o. after midnight. - We will start D5 half-normal saline - Zofran ODT as needed nausea abdominal pain - likely same etiology as above - abd x ray negative for any free air on my independent review - [place] 5 as needed pain, IV morphine as needed breakthrough pain, relist or to minimize any further constipating side effects possible CRC w/ mets - consulting oncology Constipation -Could be secondary to tumor versus primary constipation -We will obtain TSH, Relistor or as above continue home lipitor SCDs for now, anticoagulation can be started once cleared w/ surgery Physician Certification 2 Midnight Certification Type: Admission for Inpatient Services Order for Inpatient Services The services are ordered in accordance with Medicare regulations or non- Medicare payer requirements, as applicable. In the case of services not specified as inpatient-only, they are appropriately provided as inpatient services in accordance with the 2-midnight benchmark. Estimated LOS (days): 3 3 days is the estimated time the patient will need to remain in the hospital, assuming treatment plan goals are met and no additional complications. Post-Hospital Plan: Not yet determined Lennox Mccoy MD December 25, 2017 18:30
[2017-12-25 19:08] VITALS: BP 148/70
[2017-12-25 20:40] VITALS: BP 169/85; PULSE 92; RESP 16; TEMP 98.5; O2SAT 96
[2017-12-25] MEDS ORDERED: FENOFIBRATE MICRONIZED 134 MG PO SCH (21:00)
[2017-12-25] MEDS: MORPHINE SULFATE 4 MG/ML INJ IV PUSH PRN (21:21)
--- NOTE | 2017-12-25 21:21 | MB ---
cc: Yen Lora MD, Ruby Anne E MD Masoodi, Hammad M DATE: 12/25/2017 REFERRING PHYSICIAN: Dr. Lennox Mccoy. CHIEF COMPLAINT: Dr. Mccoy requests a consultation for Mrs. Doe regarding suspected metastatic colorectal cancer with history of endometrial cancer. HISTORY OF PRESENT ILLNESS: Mrs. Doe is a 67-year-old woman, well known patient to Dr. Azul Crowley. She is diagnosed with a stage I, grade 1 endometrial adenocarcinoma. She has had definitive surgery. She has been followed up. She has had no evidence of recurrent disease. Her last appointment with Dr. Crowley was 12/11. Her Pap smear was completed and was negative for any intraepithelial lesion or malignancies. Mrs. Doe has had chronic constipation. She has declined screening colonoscopy. She has never had a colonoscopy. She reports no specific change in her irritable bowel syndrome, until about this weekend when she did not have a bowel movement. She did have a bowel movement the next day and developed intermittent cramping in the abdomen. She presented to the emergency room and was seen by Dr. Morgan on 12/24. She had an imaging study CT scan of the abdomen and pelvis that showed circumferential wall thickening in the splenic flexure concerning for colonic adenocarcinoma. There were multiple metastatic lesions throughout the liver and diverticulosis in the colon. She was discharged home to followup as an outpatient. She has established herself with Dr. Yañez. However, before her appointment with Dr. Yañez, she developed nausea and vomiting in the last 24 hours. She describes sipping the magnesium citrate and, despite this, she vomited it up. She tried to drink a small V8 juice and vomited that up. She has had nothing by mouth over the last 24 hours. She denies any fevers, chills or night sweats. She relates no new changes. The rest of her review of systems is negative. PAST MEDICAL HISTORY: Hypercholesterolemia, hypertension, history of a stage I endometrial cancer status post definitive surgery, irritable bowel, mitral valve prolapse. PAST SURGICAL HISTORY: D and C procedure, hysterectomy. SOCIAL HISTORY: Denies any tobacco, alcohol or illicit drug use. FAMILY HISTORY: Significant for father who was diagnosed with lung cancer and of lung cancer in his 80s. Mother is alive at age 92 with irritable bowel and chronic constipation. ALLERGIES: SULFAMETHOXAZOLE, TRIMETHOPRIM. CURRENT MEDICATIONS: 1. Atorvastatin. 2. Tricor 3. Zofran p.r.n. 4. Morphine sulfate p.r.n. 5. [place]. PHYSICAL EXAMINATION: VITAL SIGNS: Temperature 98.5, heart rate 85, respiratory rate 16, blood pressure 148/70, saturation 99%. GENERAL: Ms. Doe is a well-developed, well-nourished woman, who looks younger than stated age. HEENT: Her pupils are round, reactive to light and accommodation. Oropharynx is clear. NECK: Supple. LUNGS: Clear to auscultation. CARDIOVASCULAR: Reveals normal rate and rhythm. ABDOMEN: Mildly distended, soft, nontender. Bowel sounds are present. LOWER EXTREMITIES: With no edema. NEUROLOGIC: Nonfocal. LABORATORY DATA: Significant for mild reactive thrombocytosis. Platelet count of 525,000, hemoglobin 13.6, MCV 86.1, white blood cell count 12.0. Comprehensive metabolic panel is normal. Liver function is normal. C-reactive protein was elevated from 529. TSH was normal. ASSESSMENT AND PLAN: Mrs. Doe is a 67-year-old woman with history of hypertension, hypercholesterolemia and irritable bowel. She has never had a screening colonoscopy. She has had a history of endometrial cancer, status post definitive surgery and is in remission. She presented with worsening constipation and abdominal pain and was found to have a splenic flexure mass in addition to metastatic disease to the liver. We discussed the above findings consistent with metastatic colon cancer as primary. I recommend a CT-guided biopsy of the liver lesion in order to identify and confirm metastatic disease. We discussed in the differential metastatic endometrial cancer, although less likely. We will consult gastroenterology in light of her intractable nausea and vomiting. The CT scan was negative for obstructive symptoms. Her abdomen is not more distended than previous. However, she has developed nausea and vomiting associated with just sips of fluid. Gastroenterology will be consulted. She has a thrombocytosis with no anemia. In light of the ascending colon cancer, iron studies will be obtained. CT scan of the chest to rule out metastatic disease to lung will be performed. Further recommendations depend on the final pathology. A baseline CEA will be obtained. Dr. Yañez has been consulted by the primary team. I defer to Dr. Yañez with regard to alleviation of the obstruction. She is advised to stop drinking as we would like to avoid all vomiting and aspiration. IV fluid support is offered. MD PAYAL Berry/ , 08:48 PM , 09:20 PM
[2017-12-25] MEDS: DEXT 5%-NACL 0.9% 1000 ML INJ 1,000 ML IV SCH (21:22)
[2017-12-25] MEDS: ATORVASTATIN 10 MG TAB PO SCH (21:22)
[2017-12-25] MEDS: FENOFIBRATE 145 MG TAB PO SCH (21:22)
[2017-12-25] MEDS: ONDANSETRON ODT 4 MG TAB PO PRN (21:22)
[2017-12-26] VITALS: BP 148/88; PULSE 80; RESP 17; TEMP 98; O2SAT 97
[2017-12-26] MEDS: D5-NS + KCL 20 MEQ INJ 1,000 ML IV SCH (00:15)
[2017-12-26] MEDS: PCA - TOTAL MG MORPHINE DELIVERED PER SHIFT SCH (00:50)
[2017-12-26 05:30] VITALS: BP 140/89; PULSE 74; RESP 17; TEMP 98.2; O2SAT 98
[2017-12-26 07:24] LABS: % SATURATION IRON PROFILE 17.5 % (20-50); IRON (FE) 56 MCG/DL (50-170); TOTAL IRON BINDING CAPACITY 321 MCG/DL (250-450)
[2017-12-26 07:27] LABS: FERRITIN 129 NG/ML (8-252)
[2017-12-26] MEDS: ONDANSETRON ODT 4 MG TAB PO PRN (08:09)
[2017-12-26] MEDS: MORPHINE SULFATE 4 MG/ML INJ IV PUSH PRN (08:10)
[2017-12-26] MEDS: DEXT 5%-NACL 0.9% 1000 ML INJ 1,000 ML IV SCH ×2 (08:14→19:54)
[2017-12-26 08:35] VITALS: BP 145/80; PULSE 79; RESP 20; TEMP 98.1; O2SAT 95
[2017-12-26] MEDS ORDERED: METHYLNALTREXONE BROMIDE 12 MG/0.6 ML VIAL SQ SCH (09:00)
--- NOTE | 2017-12-26 10:01 | PD.CONS ---
HPI History of Present Illness This is a 67 year old F with PMH significant for endometrial cancer S/P hysterectomy and hyperlipidemia who presented to the ER twice this week. Initially she presented on Saturday with complaints of abdominal pain and constipation. Initially abdominal pain was located on both sides of her abdomen , intermittent, described as a spasm or contraction like pain. She has IBS- constipation and has had issues with abdominal bloating and constipation for a long time so ignored her symptoms. She takes Miralax daily. Pt had a CT scan done in the ER on Saturday which revealed circumferential wall thickening within the splenic flexure concerning for colonic adenocarcinoma and multiple metastatic lesions throughout the liver. She was discharged home, according to ER notes, the ER doctor spoke with Dr. Yañez and pt had a scheduled outpatient follow up. Pt returned to the ER yesterday because of vomiting, states vomiting began after taking multiple laxatives to try and have a BM. She is unable to even keep a sip of water down. Oncology and colorectal has been consulted as well as our service. Oncology is planning on liver biopsy and colorectal is planning on doing flex sig or colonoscopy today. Pt denies any unintentional weight loss. Had one isolated episode of blood on the toilet paper when she wiped after straining to have a BM but denies any other hematochezia or melena. Has never had EGD or colonoscopy. Denies family history significant for colon cancer. Denies ETOH and smoking. 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[employer] Denies ETOH (Camila Ramsay) Review of Systems Gastrointestinal: COMPLAINS OF: Abdominal pain, Constipation, Nausea, Vomiting , Swelling of Abdomen, DENIES: Black stools, Bloody stools, Diarrhea, Difficulty Swallowing, Heartburn (Camila Ramsay) GI Exam Vitals I&O Vital Signs Date Time Temp Pulse Resp B/P (MAP) Pulse Ox O2 Delivery O2 Flow Rate FiO2 12/26/17 08:35 98.1 79 20 145/80 (101) 95 12/26/17 05:30 98.2 74 17 140/89 (106) 98 12/26/17 00:00 98.0 80 17 148/88 (108) 97 12/25/17 20:40 98.5 92 16 169/85 (113) 96 12/25/17 19:08 85 16 148/70 (96) 100 12/25/17 17:45 96 15 179/84 (115) 99 Room Air 12/25/17 15:41 98.5 116 18 200/102 (134) 97 I/O 12/25/17 12/25/17 12/25/17 12/26/17 12/26/17 12/26/17 07:00 15:00 23:00 07:00 15:00 23:00 Intake Total 0 ml 600 ml Balance 0 ml 600 ml Intake Oral 0 ml 600 ml # Voids 1 2 # Bowel Movements 0 0 Imaging Last Impressions Abdomen X-Ray 12/25/17 0000 Signed Impressions: CONCLUSION: Unremarkable bowel gas pattern. Laboratory Test 12/25/17 16:30 12/26/17 05:35 White Blood Count 12.0 TH/MM3 Red Blood Count 4.73 MIL/MM3 Hemoglobin 13.6 GM/DL Hematocrit 40.7 % Mean Corpuscular Volume 86.1 FL Mean Corpuscular Hemoglobin 28.8 PG Mean Corpuscular Hemoglobin Concent 33.4 % Red Cell Distribution Width 14.1 % Platelet Count 525 TH/MM3 Mean Platelet Volume 7.7 FL Neutrophils (%) (Auto) 84.8 % Lymphocytes (%) (Auto) 8.9 % Monocytes (%) (Auto) 5.6 % Eosinophils (%) (Auto) 0.2 % Basophils (%) (Auto) 0.5 % Neutrophils # (Auto) 10.1 TH/MM3 Lymphocytes # (Auto) 1.1 TH/MM3 Monocytes # (Auto) 0.7 TH/MM3 Eosinophils # (Auto) 0.0 TH/MM3 Basophils # (Auto) 0.1 TH/MM3 CBC Comment DIFF FINAL Differential Comment Prothrombin Time 10.7 SEC Prothromb Time International Ratio 1.1 RATIO Activated Partial Thromboplast Time 23.3 SEC Blood Urea Nitrogen 15 MG/DL Creatinine 0.85 MG/DL Random Glucose 102 MG/DL Total Protein 8.7 GM/DL Albumin 4.2 GM/DL Calcium Level 9.7 MG/DL Alkaline Phosphatase 113 U/L Aspartate Amino Transf (AST/SGOT) 37 U/L Alanine Aminotransferase (ALT/SGPT) 45 U/L Total Bilirubin 0.4 MG/DL Sodium Level 141 MEQ/L Potassium Level 3.9 MEQ/L Chloride Level 102 MEQ/L Carbon Dioxide Level 26.7 MEQ/L Anion Gap 12 MEQ/L Estimat Glomerular Filtration Rate 67 ML/MIN Lactic Acid Level 1.3 mmol/L Lipase 191 U/L Thyroid Stimulating Hormone 3rd Gen 2.290 uIU/ML Iron Level 56 MCG/DL Total Iron Binding Capacity 321 MCG/DL Percent Iron Saturation 17.5 % Ferritin 129 NG/ML Carcinoembryonic Antigen 623.5 NG/ML Physical Examination HEENT: Normocephalic; atraumatic CHEST: Even/unlabored CARDIAC: RRR ABDOMEN: Distended, soft, nontender, bowel sounds active EXTREMITIES: No clubbing, cyanosis, or edema. SKIN: Normal; no rash; no jaundice. WHEEL LACER AND TRUER: Alert and oriented times three. (Camila Ramsay) Assessment and Plan Plan Assessment: - Nausea and vomiting- symptoms began after patient took multiple laxatives because she has not had a BM in a few days. States small one on Saturday. History of IBS-C and takes Miralax daily. Has never had EGD - Circumferential wall thickening within the splenic flexure concerning for colonic adenocarcinoma- with elevated CEA at 623.5 Pt has never had colonoscopy before. Denies family history of colon cancer. Had one isolated episode of blood on toilet paper when she wiped after straining to have a BM, denies any other hematochezia or unintentional weight loss Per pt, seen by Dr. Yañez this morning who is planning on flex sig or colonoscopy this afternoon - Multiple metastatic lesions throughout the liver seen on CT Seen by Oncology who has ordered liver biopsy Plan: Colonoscopy per colorectal surgery Oncology following- ordered liver biopsy EGD tomorrow Obtain consent NPO after MN NGT to LIWS if intractable emesis Further recommendations based on findings of above Pt has been seen and examined by myself and Dr. Santamaria and this note is written on his behalf (Camila Ramsay) Physician Comments Seen and examined with joe BETANCOURT in progress for colon mass by Dr Ritter. Liver biopsy ordered by Dr Scruggs. EGD planned tomorrow if still having upper gi symptoms. Discussed with pt. and family at the bedside. Thank you (rEyn Santamaria MD) Camila Ramsay December 26, 2017 10:01 Eryn Santamaria MD December 26, 2017 12:59
--- NOTE | 2017-12-26 10:53 | PD.ONC.PN ---
Subjective Subjective Remarks Afebrile overnight. Patient feeling very constipated. she had an enema but nothing came out. very anxious about everything. Objective Data Date Time Temp Pulse Resp B/P (MAP) Pulse Ox O2 Delivery O2 Flow Rate FiO2 12/26/17 08:35 98.1 79 20 145/80 (101) 95 12/26/17 05:30 98.2 74 17 140/89 (106) 98 12/26/17 00:00 98.0 80 17 148/88 (108) 97 12/25/17 20:40 98.5 92 16 169/85 (113) 96 12/25/17 19:08 85 16 148/70 (96) 100 12/25/17 17:45 96 15 179/84 (115) 99 Room Air 12/25/17 15:41 98.5 116 18 200/102 (134) 97 12/26/17 12/26/17 12/26/17 07:00 15:00 23:00 Intake Total 600 ml Balance 600 ml Result Diagram: 12/25/17 1630 12/25/17 1630 Laboratory Results Laboratory Tests Test 12/25/17 16:30 12/26/17 05:35 White Blood Count 12.0 TH/MM3 Red Blood Count 4.73 MIL/MM3 Hemoglobin 13.6 GM/DL Hematocrit 40.7 % Mean Corpuscular Volume 86.1 FL Mean Corpuscular Hemoglobin 28.8 PG Mean Corpuscular Hemoglobin Concent 33.4 % Red Cell Distribution Width 14.1 % Platelet Count 525 TH/MM3 Mean Platelet Volume 7.7 FL Neutrophils (%) (Auto) 84.8 % Lymphocytes (%) (Auto) 8.9 % Monocytes (%) (Auto) 5.6 % Eosinophils (%) (Auto) 0.2 % Basophils (%) (Auto) 0.5 % Neutrophils # (Auto) 10.1 TH/MM3 Lymphocytes # (Auto) 1.1 TH/MM3 Monocytes # (Auto) 0.7 TH/MM3 Eosinophils # (Auto) 0.0 TH/MM3 Basophils # (Auto) 0.1 TH/MM3 CBC Comment DIFF FINAL Differential Comment Prothrombin Time 10.7 SEC Prothromb Time International Ratio 1.1 RATIO Activated Partial Thromboplast Time 23.3 SEC Blood Urea Nitrogen 15 MG/DL Creatinine 0.85 MG/DL Random Glucose 102 MG/DL Total Protein 8.7 GM/DL Albumin 4.2 GM/DL Calcium Level 9.7 MG/DL Alkaline Phosphatase 113 U/L Aspartate Amino Transf (AST/SGOT) 37 U/L Alanine Aminotransferase (ALT/SGPT) 45 U/L Total Bilirubin 0.4 MG/DL Sodium Level 141 MEQ/L Potassium Level 3.9 MEQ/L Chloride Level 102 MEQ/L Carbon Dioxide Level 26.7 MEQ/L Anion Gap 12 MEQ/L Estimat Glomerular Filtration Rate 67 ML/MIN Lactic Acid Level 1.3 mmol/L Lipase 191 U/L Thyroid Stimulating Hormone 3rd Gen 2.290 uIU/ML Iron Level 56 MCG/DL Total Iron Binding Capacity 321 MCG/DL Percent Iron Saturation 17.5 % Ferritin 129 NG/ML Carcinoembryonic Antigen 623.5 NG/ML Administered Medications Medications (Trade) Dose Ordered Sig/Bethany Route PRN Reason Start Time Stop Time Status Last Admin Dose Admin Sodium Chloride (NS Flush) 2 ml UNSCH PRN IV FLUSH FLUSH AFTER USING IV ACCESS 12/25/17 16:15 12/25/17 21:23 Atorvastatin Calcium (Lipitor) 10 mg HS PO 12/25/17 21:00 12/25/17 21:22 Ondansetron HCl (Zofran Odt) 4 mg Q6H PRN PO nausea 12/25/17 18:30 12/26/17 08:09 Fenofibrate (Tricor) 145 mg HS PO 12/25/17 21:00 12/25/17 21:22 Morphine Sulfate (Morphine Inj) 4 mg Q3H PRN IV PUSH breakthru pain control 12/25/17 18:30 12/26/17 08:10 Dextrose/Sodium Chloride 1,000 ml @ 84 mls/hr [id number] IV 12/25/17 21:00 12/26/17 08:14 Objective Remarks GENERAL: Middle aged female, sitting up in bed in nad SKIN: Warm and dry. HEAD: Normocephalic. EYES: No injection or drainage. NECK: Supple, trachea midline. CARDIOVASCULAR: Regular rate and rhythm RESPIRATORY: Breath sounds equal bilaterally. No accessory muscle use. GASTROINTESTINAL: Abdomen distended, nontender. +BS EXTREMITIES: No cyanosis NEUROLOGICAL: No obvious focal deficit. Awake, alert, and oriented x3. Assessment/Plan Assessment 67y/o female with suspected metastatic colorectal cancer with history of endometrial cancer. h/o stage I, grade 1 endometrial adenocarcinoma s/p definitive surgery w/no evidence of recurrent disease. h/o chronic constipation. mitral valve prolapse. Plan 1. await CT guided biopsy of liver lesion, obtain CT chest for staging. 2. continue IVF 3. continue supportive care Attending Statement The exam, history, and the medical decision-making described in the above note were completed with the assistance of the mid-level provider. I reviewed and agree with the findings presented. I attest that I had a irth-ea-armr encounter with the patient on the same day, and personally performed and documented my assessment and findings in the medical record. Discussed with Dr. Yañez. Pending surgery for obstruction. CT guided liver biopsy deferred to see if liver bx could be done during surgery. CEA elevated suggest colon cancer origin. Follow and further recommendations pending pathology. Suki Kaminski December 26, 2017 10:53 Yen Lora MD December 26, 2017 16:45
--- NOTE | 2017-12-26 11:35 | HHI.PR ---
Subjective Remarks Pain is controlled with current pain treatments. Plan for colonoscopy today. Possible partial colectomy. Liver biopsy on hold. Objective Vital Signs Date Time Temp Pulse Resp B/P (MAP) Pulse Ox O2 Delivery O2 Flow Rate FiO2 12/26/17 08:35 98.1 79 20 145/80 (101) 95 12/26/17 05:30 98.2 74 17 140/89 (106) 98 12/26/17 00:00 98.0 80 17 148/88 (108) 97 12/25/17 20:40 98.5 92 16 169/85 (113) 96 12/25/17 19:08 85 16 148/70 (96) 100 12/25/17 17:45 96 15 179/84 (115) 99 Room Air 12/25/17 15:41 98.5 116 18 200/102 (134) 97 I/O 12/25/17 12/25/17 12/25/17 12/26/17 12/26/17 12/26/17 07:00 15:00 23:00 07:00 15:00 23:00 Intake Total 0 ml 600 ml Balance 0 ml 600 ml Intake Oral 0 ml 600 ml # Voids 1 2 # Bowel Movements 0 0 Result Diagram: 12/25/17 1630 12/25/17 1630 Imaging Last Impressions Abdomen X-Ray 12/25/17 0000 Signed Impressions: CONCLUSION: Unremarkable bowel gas pattern. Objective Remarks GENERAL: NAD, A&Ox3 HEAD: Normocephalic. NECK: Supple, trachea midline. No lymphadenopathy. EYES: No scleral icterus. No injection or drainage. CARDIOVASCULAR: Regular rate and rhythm without murmurs, gallops, or rubs. RESPIRATORY: Breath sounds equal bilaterally. No accessory muscle use. GASTROINTESTINAL: Abdomen soft, nondistended. Mild to moderate abdominal tenderness. MUSCULOSKELETAL: No cyanosis, or edema. SKIN: Warm and dry. NEURO: No focal neurological deficitis. A/P Problem List: (1) Intractable abdominal pain ICD Code: R10.9 - Unspecified abdominal pain Status: Acute (2) Colonic mass ICD Code: K63.9 - Disease of intestine, unspecified (3) Liver mass ICD Code: R16.0 - Hepatomegaly, not elsewhere classified Assessment and Plan 67-year-old female admitted for irretractable pain related to colon mass Irretractable abdominal pain Colon mass Liver mass Plan for colonoscopy today Pain is improved with narcotics Follow patient clinically Patient have a partial colectomy if needed Tissue samples needed for diagnosis DVT prophylaxis Sanjay Moran MD December 26, 2017 11:35
[2017-12-26] MEDS ORDERED: SUCCINYLCHOLINE CHLORIDE 100 MG/5 ML SYRINGE IV PUSH ONE (12:00)
[2017-12-26] MEDS ORDERED: PROPOFOL 200 MG/20 ML AMP IV ONE (12:00)
[2017-12-26] MEDS ORDERED: LIDOCAINE HCL 1% PF 5 ML SYRINGE OTHER ONE (12:00)
[2017-12-26] MEDS ORDERED: ePHEDrine/NS 25 MG/5 ML SYRINGE IV ONE (12:00)
[2017-12-26] MEDS ORDERED: ROCURONIUM INJ 50 MG/5 ML SYRINGE IV PUSH ONE (12:00)
[2017-12-26] MEDS ORDERED: ONDANSETRON HCL 4 MG/2 ML VIAL IV ONE (12:00)
[2017-12-26] MEDS ORDERED: DEXAMETHASONE SOD PHOS 4 MG/ML VIAL IV ONE (12:00)
[2017-12-26] MEDS ORDERED: LACTATED RINGER'S 1000 ML INJ 1,000 ML IV ONE (12:00)
[2017-12-26 12:44] VITALS: BP 160/77; PULSE 74; RESP 20; TEMP 98.3; O2SAT 97
[2017-12-26 16:00] VITALS: BP 167/82; PULSE 86; RESP 20; TEMP 98.3; O2SAT 97
[2017-12-26] MEDS: ATORVASTATIN 10 MG TAB PO SCH (19:53)
[2017-12-26] MEDS: FENOFIBRATE 145 MG TAB PO SCH (19:54)
[2017-12-26 20:49] VITALS: BP 158/80; PULSE 85; RESP 20; TEMP 99; O2SAT 97
[2017-12-26] MEDS ORDERED: fentaNYL CITRATE 250 MCG/5 ML AMP ONE (20:55)
[2017-12-26] MEDS ORDERED: ceFAZolin INJ 1,000 MG VIAL ONE (21:30)
[2017-12-26] MEDS ORDERED: metroNIDAZOLE 500 MG INJ 100 ML IV ONE (21:30)
[2017-12-26] MEDS ORDERED: SUGAMMADEX SODIUM 200 MG/2 ML VIAL IV PUSH ONE (22:51)
[2017-12-26] MEDS ORDERED: ENALAPRILAT 1.25 MG/ML VIAL IV PUSH PRN (23:15)
[2017-12-26] MEDS ORDERED: BENZOCAINE 6 MG/MENTHOL 10 MG LOZENGE BUCCAL PRN (23:15)
[2017-12-26] MEDS ORDERED: POTASSIUM CHLOR 40 MEQ PREMIX 100 ML IV PRN (23:15)
[2017-12-26] MEDS ORDERED: Post-op Orders (for Pharmacy) XX ONE (23:15)
[2017-12-26] MEDS ORDERED: ENALAPRILAT 2.5 MG/2 ML VIAL IV PUSH PRN (23:15)
[2017-12-26] MEDS ORDERED: POTASSIUM CHLOR 20 MEQ PREMIX 100 ML IV PRN (23:15)
[2017-12-26] MEDS ORDERED: ACETAMINOPHEN/HYDROcodone 325 MG/5 MG TAB PO PRN ×2 (23:15)
[2017-12-26] MEDS ORDERED: NALOXONE HCL 0.4 MG/ML AMP IV PUSH PRN (23:15)
[2017-12-26] MEDS ORDERED: DO NOT ADM ANY ANTICOAGULANT DRUGS PRN (23:23)
[2017-12-26] MEDS ORDERED: *morphine SULFATE 4 MG/ML PERIprocedure ONLY ONE ×2 (23:33→23:47)
[2017-12-27] VITALS (21 sets, daily range): BP systolic 110–142; BP diastolic 57–71; PULSE 73–122; RESP 16–20; TEMP 98.3–100.6; O2SAT 90–99
[2017-12-27] MEDS ORDERED: metroNIDAZOLE 500 MG INJ 100 ML IV SCH
[2017-12-27] MEDS ORDERED: *morphine SULFATE 4 MG/ML PERIprocedure ONLY ONE (00:12)
[2017-12-27] MEDS: MORPHINE SULFATE 30 MG/30 ML PCA IV SCH (00:21)
[2017-12-27] MEDS: KETOROLAC TROMETHAMINE 30 MG/ML (IVP) VIAL IVP PRN ×3 (00:45→21:39)
[2017-12-27 04:25] LABS: BASOPHIL % 0.1 % (0.0-2.0); HEMATOCRIT 34.9 % (35.0-46.0); HEMOGLOBIN 11.7 GM/DL (11.6-15.3); LYMPH % 4.3 % (9.0-44.0); LYMPHOCYTE # 0.6 TH/MM3 (1.0-4.8); MEAN CELL VOLUME 87.1 FL (80.0-100.0); MEAN CORPUSCULAR HEMOGLOBIN 29.1 PG (27.0-34.0); MEAN CORPUSCULAR HGB CONC 33.4 % (32.0-36.0); MEAN PLATELET VOLUME 7.7 FL (7.0-11.0); MONO % 9.5 % (0.0-8.0); MONOCYTE # 1.2 TH/MM3 (0-0.9); NEUT % 86.1 % (16.0-70.0); PLATELET COUNT 389 TH/MM3 (150-450); RED CELL DISTRIBUTION WIDTH 14.1 % (11.6-17.2); WHITE BLOOD COUNT 12.8 TH/MM3 (4.0-11.0)
[2017-12-27 05:05] LABS: ALBUMIN 2.9 GM/DL (3.4-5.0); ALKALINE PHOSPHATASE 72 U/L (45-117); ALT (GPT) 30 U/L (10-53); AST (GOT) 39 U/L (15-37); BICARBONATE 21.4 MEQ/L (21.0-32.0); BLOOD UREA NITROGEN 11 MG/DL (7-18); CALCIUM 7.9 MG/DL (8.5-10.1); CHLORIDE 107 MEQ/L (98-107); CREATININE 0.92 MG/DL (0.50-1.00); GLOMERULAR FILTRATION RATE 61 ML/MIN (>89); GLUCOSE,RANDOM 222 MG/DL (74-106); SODIUM (NA) 139 MEQ/L (136-145); TOTAL BILIRUBIN ADULT 0.3 MG/DL (0.2-1.0)
[2017-12-27] MEDS: metroNIDAZOLE 500 MG INJ 100 ML IV SCH ×3 (05:52→21:27)
[2017-12-27] MEDS: D5-NS + KCL 20 MEQ INJ 1,000 ML IV SCH ×3 (05:52→15:02)
[2017-12-27] MEDS: PCA - TOTAL MG MORPHINE DELIVERED PER SHIFT SCH ×3 (06:00→22:00)
[2017-12-27] MEDS: METOCLOPRAMIDE HCL 10 MG/2 ML VIAL IVS SCH ×2 (08:45→21:27)
[2017-12-27] MEDS: PANTOPRAZOLE SODIUM 40 MG VIAL IVP SCH (08:45)
[2017-12-27] MEDS: PANTOPRAZOLE SOD 40 MG DELAYED RELEASE TAB PO SCH (08:45)
--- NOTE | 2017-12-27 11:12 | HHI.PR ---
Subjective Remarks Patient is status post exploratory laparotomy with left-sided partial colectomy and mass removal. Colon cancer is suspected. Patient is doing well postop. Mild nausea. Objective Vital Signs Date Time Temp Pulse Resp B/P (MAP) Pulse Ox O2 Delivery O2 Flow Rate FiO2 12/27/17 09:16 20 12/27/17 08:08 99 Nasal Cannula 2.00 12/27/17 08:00 92 12/27/17 08:00 99.1 105 16 130/58 (82) 93 12/27/17 06:00 18 12/27/17 03:00 98.6 88 18 118/60 (79) 97 12/27/17 03:00 78 12/27/17 02:05 18 12/27/17 01:00 80 12/27/17 01:00 98.3 73 18 142/66 (91) 98 12/27/17 00:30 98.1 87 18 147/73 (97) 99 Nasal Cannula 3 12/27/17 00:21 14 12/27/17 00:15 72 20 144/77 (99) 100 Nasal Cannula 3 12/27/17 00:00 83 22 136/83 (100) 99 Nasal Cannula 3 12/26/17 23:45 83 18 134/78 (96) 97 Nasal Cannula 3 12/26/17 23:30 98 19 134/78 (96) 96 Nasal Cannula 3 12/26/17 23:23 97.9 88 21 139/82 (101) 99 Nasal Cannula 4 12/26/17 20:49 99.0 85 20 158/80 (106) 97 12/26/17 16:00 98.3 86 20 167/82 (110) 97 12/26/17 12:44 98.3 74 20 160/77 (104) 97 I/O 12/26/17 12/26/17 12/26/17 12/27/17 12/27/17 12/27/17 07:00 15:00 23:00 07:00 15:00 23:00 Intake Total 600 ml 1850 ml Output Total 675 ml Balance 600 ml 1175 ml Intake Oral 600 ml 150 ml IV Total 500 ml Other 1200 ml Output Urine Total 575 ml Estimated Blood Loss 100 ml # Voids 2 3 # Bowel Movements 0 Result Diagram: 12/27/17 0338 6/1/18 0338 Objective Remarks GENERAL: NAD, A&Ox3 HEAD: Normocephalic. NECK: Supple, trachea midline. No lymphadenopathy. EYES: No scleral icterus. No injection or drainage. CARDIOVASCULAR: Regular rate and rhythm without murmurs, gallops, or rubs. RESPIRATORY: Breath sounds equal bilaterally. No accessory muscle use. GASTROINTESTINAL: Abdomen soft, nondistended. Mild to moderate abdominal tenderness. MUSCULOSKELETAL: No cyanosis, or edema. SKIN: Warm and dry. NEURO: No focal neurological deficitis. A/P Problem List: (1) Intractable abdominal pain ICD Code: R10.9 - Unspecified abdominal pain Status: Acute (2) Colonic mass ICD Code: K63.9 - Disease of intestine, unspecified (3) Liver mass ICD Code: R16.0 - Hepatomegaly, not elsewhere classified Assessment and Plan 67-year-old female admitted for irretractable pain related to colon mass Follow up pathology reports. Continue pain treatment. Diet advancement per surgeon recommendations. Continue to monitor CBC and CMP. Irretractable abdominal pain Colon mass Liver mass Plan for colonoscopy today Pain is improved with narcotics Follow patient clinically Patient have a partial colectomy if needed Tissue samples needed for diagnosis DVT prophylaxis SCDs Sanjay Barkley MD Dec 27, 2017 11:12
--- NOTE | 2017-12-27 15:03 | RADRPT ---
EXAM DATE: 12/27/2017 2:11 PM EDT AGE/SEX: 67 years / Female INDICATIONS: Evaluate for metastatic disease. Endometrial cancer. CLINICAL DATA: This is the patient's initial encounter. Patient reports that signs and symptoms have been present for 1 day and indicates a pain score of 6/10. MEDICAL/SURGICAL HISTORY: Hypertension. Endometrial cancer. Hysterectomy. Abdominal surgery. RADIATION DOSE: 9.59 CTDI (mGy) COMPARISON: No prior [place] exams available for comparison. TECHNIQUE: Multiple contiguous axial images were obtained through the chest without contrast. Image s were obtained in suspended respiration using multiple row detector helical technique. Using automa julieth exposure control and adjustment of the mA and/or kV according to patient size, radiation dose was kept as low as reasonably achievable to obtain optimal diagnostic quality images. FINDINGS: Minimal bibasilar parenchymal changes are evident. There are no suspicious lung lesions identified. There is no axillary adenopathy. There is no mediastinal adenopathy. There is some free air. Metastatic disease is evident in the liver. CONCLUSION: 1. Negative for metastatic disease to the chest 2. Trace ascites and free air in this postoperative patient. Electronically signed by: Jaguar Cuenca MD 12/27/2017 3:02 PM EDT
--- NOTE | 2017-12-27 19:21 | PD.ONC.PN ---
Subjective Subjective Remarks "I walked today" Pain controlled. Thirsty, eager to drink ice tea. No nausea or vomiting. Objective Data Date Time Temp Pulse Resp B/P (MAP) Pulse Ox O2 Delivery O2 Flow Rate FiO2 12/27/17 18:00 98 12/27/17 17:00 112 12/27/17 16:00 99.0 108 18 110/57 (74) 93 12/27/17 16:00 113 12/27/17 15:00 110 12/27/17 13:03 20 12/27/17 13:00 90 12/27/17 12:00 88 12/27/17 12:00 98.9 88 16 128/60 (82) 94 12/27/17 11:00 82 12/27/17 10:00 118 12/27/17 09:16 20 12/27/17 09:00 90 12/27/17 08:08 99 Nasal Cannula 2.00 12/27/17 08:00 92 12/27/17 08:00 99.1 105 16 130/58 (82) 93 12/27/17 07:00 88 12/27/17 06:00 18 12/27/17 03:00 98.6 88 18 118/60 (79) 97 12/27/17 03:00 78 12/27/17 02:05 18 12/27/17 01:00 80 12/27/17 01:00 98.3 73 18 142/66 (91) 98 12/27/17 00:30 98.1 87 18 147/73 (97) 99 Nasal Cannula 3 12/27/17 00:21 14 12/27/17 00:15 72 20 144/77 (99) 100 Nasal Cannula 3 12/27/17 00:00 83 22 136/83 (100) 99 Nasal Cannula 3 12/26/17 23:45 83 18 134/78 (96) 97 Nasal Cannula 3 12/26/17 23:30 98 19 134/78 (96) 96 Nasal Cannula 3 12/26/17 23:23 97.9 88 21 139/82 (101) 99 Nasal Cannula 4 12/26/17 20:49 99.0 85 20 158/80 (106) 97 12/27/17 12/27/17 12/27/17 07:00 15:00 23:00 Intake Total 1850 ml 1180 ml Output Total 675 ml 550 ml Balance 1175 ml 630 ml Result Diagram: 12/27/17 0338 12/27/17 0338 Laboratory Results Laboratory Tests Test 12/27/17 03:38 White Blood Count 12.8 TH/MM3 Red Blood Count 4.00 MIL/MM3 Hemoglobin 11.7 GM/DL Hematocrit 34.9 % Mean Corpuscular Volume 87.1 FL Mean Corpuscular Hemoglobin 29.1 PG Mean Corpuscular Hemoglobin Concent 33.4 % Red Cell Distribution Width 14.1 % Platelet Count 389 TH/MM3 Mean Platelet Volume 7.7 FL Neutrophils (%) (Auto) 86.1 % Lymphocytes (%) (Auto) 4.3 % Monocytes (%) (Auto) 9.5 % Eosinophils (%) (Auto) 0.0 % Basophils (%) (Auto) 0.1 % Neutrophils # (Auto) 11.0 TH/MM3 Lymphocytes # (Auto) 0.6 TH/MM3 Monocytes # (Auto) 1.2 TH/MM3 Eosinophils # (Auto) 0.0 TH/MM3 Basophils # (Auto) 0.0 TH/MM3 CBC Comment DIFF FINAL Differential Comment Blood Urea Nitrogen 11 MG/DL Creatinine 0.92 MG/DL Random Glucose 222 MG/DL Total Protein 6.0 GM/DL Albumin 2.9 GM/DL Calcium Level 7.9 MG/DL Alkaline Phosphatase 72 U/L Aspartate Amino Transf (AST/SGOT) 39 U/L Alanine Aminotransferase (ALT/SGPT) 30 U/L Total Bilirubin 0.3 MG/DL Sodium Level 139 MEQ/L Potassium Level 3.7 MEQ/L Chloride Level 107 MEQ/L Carbon Dioxide Level 21.4 MEQ/L Anion Gap 11 MEQ/L Estimat Glomerular Filtration Rate 61 ML/MIN Imaging Studies Last [address] 12/27/17 0600 Signed Impressions: CONCLUSION: 1. Negative for metastatic disease to the chest 2. Trace ascites and free air in this postoperative patient. Administered Medications Medications (Trade) Dose Ordered Sig/Bethany Route PRN Reason Start Time Stop Time Status Last Admin Dose Admin Sodium Chloride (NS Flush) 2 ml UNSCH PRN IV FLUSH FLUSH AFTER USING IV ACCESS 12/25/17 16:15 12/25/17 21:23 Atorvastatin Calcium (Lipitor) 10 mg HS PO 12/25/17 21:00 12/25/17 21:22 Fenofibrate (Tricor) 145 mg HS PO 12/25/17 21:00 12/25/17 21:22 Morphine Sulfate (Morphine Inj) 4 mg Q3H PRN IV PUSH breakthru pain control 12/25/17 18:30 12/26/17 08:10 Potassium Chloride/Dextrose/ Sod Cl 1,000 ml @ 100 mls/hr Q10H IV 12/26/17 23:15 12/27/17 15:02 Ketorolac Tromethamine (Toradol Inj) 30 mg Q6H PRN IVP PAIN SCALE 1 TO 10 12/26/17 23:15 12/29/17 23:14 12/27/17 08:45 Pantoprazole Sodium (Protonix Inj) 40 mg DAILY IVP 12/27/17 09:00 12/27/17 08:45 Metoclopramide HCl (Reglan Inj) 10 mg Q12HR IVS 12/27/17 09:00 12/27/17 08:45 Morphine Sulfate (Morphine 1 Mg/ ml REED MAN) 30 mg UNSCH IV 12/26/17 23:15 12/27/17 00:21 REED MAN Dosage Infused (Pha) 1 Q8HR .XX 12/26/17 23:15 12/27/17 13:03 Metronidazole 100 ml @ 200 mls/hr Q8HR IV 12/27/17 06:00 12/27/17 22:29 12/27/17 13:03 Objective Remarks GENERAL: Middle aged female, sitting up in bed in nad SKIN: Warm and dry. HEAD: Normocephalic. EYES: No injection or drainage. NECK: Supple, trachea midline. CARDIOVASCULAR: Regular rate and rhythm RESPIRATORY: Breath sounds equal bilaterally. No accessory muscle use. GASTROINTESTINAL: Abdomen binder in place. EXTREMITIES: No cyanosis, no edema. Moving all 4 extremities. NEUROLOGICAL: No obvious focal deficit. Awake, alert, and oriented x3. Assessment/Plan Assessment 67y/o female with suspected metastatic colorectal cancer with history of endometrial cancer. h/o stage I, grade 1 endometrial adenocarcinoma s/p definitive surgery w/no evidence of recurrent disease. h/o chronic constipation. mitral valve prolapse. s/p colon primary resection and liver biopsy Plan 1. Post op management by Dr. Yañez. 2. Follow up in heme/onc clinic in 2 weeks after DC. Yen Lora MD Dec 27, 2017 19:21
[2017-12-27] MEDS: FENOFIBRATE 145 MG TAB PO SCH (21:26)
[2017-12-27] MEDS: ATORVASTATIN 10 MG TAB PO SCH (21:26)
[2017-12-28] VITALS (22 sets, daily range): BP systolic 121–157; BP diastolic 63–82; PULSE 94–126; RESP 16–18; TEMP 98.8–101.1; O2SAT 91–97
[2017-12-28] MEDS: D5-NS + KCL 20 MEQ INJ 1,000 ML IV SCH ×2 (02:19→13:18)
[2017-12-28 03:59] LABS: AUTOMATED NEUTROPHIL # 8.5 TH/MM3 (1.8-7.7); BASOPHIL # 0.1 TH/MM3 (0-0.2); BASOPHIL % 0.7 % (0.0-2.0); EOSINOPHIL # 0.3 TH/MM3 (0-0.4); EOSINOPHIL % 2.8 % (0.0-4.0); HEMATOCRIT 32.4 % (35.0-46.0); HEMOGLOBIN 10.6 GM/DL (11.6-15.3); LYMPH % 11.7 % (9.0-44.0); LYMPHOCYTE # 1.4 TH/MM3 (1.0-4.8); MEAN CELL VOLUME 87.6 FL (80.0-100.0); MEAN CORPUSCULAR HEMOGLOBIN 28.6 PG (27.0-34.0); MEAN CORPUSCULAR HGB CONC 32.7 % (32.0-36.0); MEAN PLATELET VOLUME 7.7 FL (7.0-11.0); MONO % 11.9 % (0.0-8.0); MONOCYTE # 1.4 TH/MM3 (0-0.9); NEUT % 72.9 % (16.0-70.0); PLATELET COUNT 373 TH/MM3 (150-450); RED CELL DISTRIBUTION WIDTH 14.4 % (11.6-17.2); WHITE BLOOD COUNT 11.6 TH/MM3 (4.0-11.0)
[2017-12-28 04:27] LABS: ALBUMIN 2.6 GM/DL (3.4-5.0); AST (GOT) 40 U/L (15-37); BICARBONATE 21.9 MEQ/L (21.0-32.0); BLOOD UREA NITROGEN 14 MG/DL (7-18); CALCIUM 7.9 MG/DL (8.5-10.1); CHLORIDE 114 MEQ/L (98-107); CREATININE 1.01 MG/DL (0.50-1.00); GLOMERULAR FILTRATION RATE 55 ML/MIN (>89); GLUCOSE,RANDOM 101 MG/DL (74-106); SODIUM (NA) 145 MEQ/L (136-145)
[2017-12-28 04:29] LABS: ALKALINE PHOSPHATASE 64 U/L (45-117); ALT (GPT) 29 U/L (10-53); TOTAL BILIRUBIN ADULT 0.5 MG/DL (0.2-1.0); TOTAL PROTEIN 5.9 GM/DL (6.4-8.2)
[2017-12-28] MEDS: PCA - TOTAL MG MORPHINE DELIVERED PER SHIFT SCH ×3 (05:40→21:34)
--- NOTE | 2017-12-28 08:24 | HHI.PR ---
Subjective Remarks C/R Surg POD # 2 afebrile, VSS UO adeq +flatus Objective - Vital Signs Date Time Temp Pulse Resp B/P (MAP) Pulse Ox O2 Delivery O2 Flow Rate FiO2 12/28/17 06:09 106 12/28/17 05:40 18 12/28/17 04:00 98.9 154/73 (100) 93 12/28/17 04:00 Nasal Cannula 3.00 Result Diagram: 12/28/17 0333 12/28/17 0333 Objective Remarks PE alert Abd - soft, wound dry, min tympany A/P Assessment and Plan Imp: adv diet decr IVF OOB tx to floor Maksim Yañez MD Dec 28, 2017 08:24
[2017-12-28] MEDS: PANTOPRAZOLE SODIUM 40 MG VIAL IVP SCH (08:49)
[2017-12-28] MEDS: FUROSEMIDE 20 MG/2 ML VIAL IV PUSH SCH ×2 (08:49→21:32)
[2017-12-28] MEDS: ACETAMINOPHEN 325 MG TAB PO PRN (08:50)
[2017-12-28] MEDS: PANTOPRAZOLE SOD 40 MG DELAYED RELEASE TAB PO SCH (08:50)
[2017-12-28] MEDS: METOCLOPRAMIDE HCL 10 MG/2 ML VIAL IVS SCH ×2 (08:52→21:32)
--- NOTE | 2017-12-28 10:18 | HHI.PR ---
Subjective Remarks Recovery is going well. Mrs. Doe is now advanced to clears and thus far has tolerated this without nausea. Pain is controlled. Ambulation will increase. Objective Vital Signs Date Time Temp Pulse Resp B/P (MAP) Pulse Ox O2 Delivery O2 Flow Rate FiO2 12/28/17 07:00 93 Nasal Cannula 3.00 12/28/17 06:09 106 12/28/17 05:40 18 12/28/17 05:00 104 12/28/17 04:00 103 12/28/17 04:00 98.9 119 18 154/73 (100) 93 12/28/17 04:00 85 Nasal Cannula 3.00 12/28/17 03:00 96 12/28/17 02:00 96 12/28/17 01:00 94 12/28/17 00:31 98.8 97 16 121/63 (82) 97 12/28/17 00:30 92 Room Air 12/28/17 00:00 95 12/27/17 23:00 97 12/27/17 22:00 116 12/27/17 22:00 18 12/27/17 21:00 118 12/27/17 20:15 92 Nasal Cannula 2.00 12/27/17 20:08 88 Nasal Cannula 2.00 12/27/17 20:08 100.6 121 20 119/71 (87) 90 12/27/17 20:00 122 12/27/17 19:00 115 12/27/17 18:00 98 12/27/17 17:00 112 12/27/17 16:00 99.0 108 18 110/57 (74) 93 12/27/17 16:00 113 12/27/17 15:00 110 12/27/17 13:03 20 12/27/17 13:00 90 12/27/17 12:00 88 12/27/17 12:00 98.9 88 16 128/60 (82) 94 12/27/17 11:00 82 I/O 12/27/17 12/27/17 12/27/17 12/28/17 12/28/17 12/28/17 07:00 15:00 23:00 07:00 15:00 23:00 Intake Total 1850 ml 1270 ml 2055 ml Output Total 675 ml 550 ml 300 ml Balance 1175 ml 720 ml 1755 ml Intake Oral 150 ml 60 ml 240 ml IV Total 500 ml 1210 ml 1815 ml Other 1200 ml Output Urine Total 575 ml 550 ml 300 ml Estimated Blood Loss 100 ml # Bowel Movements 0 0 Result Diagram: 12/28/1733212/28/17332 Objective Remarks GENERAL: NAD, A&Ox3 HEAD: Normocephalic. NECK: Supple, trachea midline. No lymphadenopathy. EYES: No scleral icterus. No injection or drainage. CARDIOVASCULAR: Regular rate and rhythm without murmurs, gallops, or rubs. RESPIRATORY: Breath sounds equal bilaterally. No accessory muscle use. GASTROINTESTINAL: Abdomen soft, nondistended. Mild to moderate abdominal tenderness. MUSCULOSKELETAL: No cyanosis, or edema. SKIN: Warm and dry. NEURO: No focal neurological deficitis. A/P Problem List: (1) Intractable abdominal pain ICD Code: R10.9 - Unspecified abdominal pain Status: Acute (2) Colonic mass ICD Code: K63.9 - Disease of intestine, unspecified (3) Liver mass ICD Code: R16.0 - Hepatomegaly, not elsewhere classified Assessment and Plan 67-year-old female admitted for irretractable pain related to colon mass On clear liquids now. No nausea. Pain controlled. Follow post op. Continue to monitor CBC and CMP. Irretractable abdominal pain Colon mass Liver mass Plan for colonoscopy today Pain is improved with narcotics Follow patient clinically Patient have a partial colectomy if needed Tissue samples needed for diagnosis DVT prophylaxis Sanjay Moran MD Dec 28, 2017 10:17
[2017-12-28] MEDS: MORPHINE SULFATE 30 MG/30 ML PCA IV SCH (13:01)
--- NOTE | 2017-12-28 13:31 | HHI.GIFU ---
Subjective Remarks Pt in bedside chair, family at bedside She has been tolerating liquids with no nausea or emesis Some post op abdominal soreness, currently with abdominal binder (Camila Ramsay) Objective Vitals I&O Vital Signs Date Time Temp Pulse Resp B/P (MAP) Pulse Ox O2 Delivery O2 Flow Rate FiO2 12/28/17 13:01 18 12/28/17 12:00 117 12/28/17 11:00 91 Nasal Cannula 2.00 12/28/17 11:00 107 12/28/17 11:00 99.4 113 18 142/77 (98) 91 12/28/17 10:00 106 12/28/17 09:00 111 12/28/17 08:02 92 Nasal Cannula 3.00 12/28/17 08:00 108 12/28/17 07:00 101.1 116 18 157/81 (106) 93 12/28/17 07:00 115 12/28/17 07:00 93 Nasal Cannula 3.00 12/28/17 06:09 106 12/28/17 05:40 18 12/28/17 05:00 104 12/28/17 04:00 103 12/28/17 04:00 98.9 119 18 154/73 (100) 93 12/28/17 04:00 85 Nasal Cannula 3.00 12/28/17 03:00 96 12/28/17 02:00 96 12/28/17 01:00 94 12/28/17 00:31 98.8 97 16 121/63 (82) 97 12/28/17 00:30 92 Room Air 12/28/17 00:00 95 12/27/17 23:00 97 12/27/17 22:00 116 12/27/17 22:00 18 12/27/17 21:00 118 12/27/17 20:15 92 Nasal Cannula 2.00 12/27/17 20:08 88 Nasal Cannula 2.00 12/27/17 20:08 100.6 121 20 119/71 (87) 90 12/27/17 20:00 122 12/27/17 19:00 115 12/27/17 18:00 98 12/27/17 17:00 112 12/27/17 16:00 99.0 108 18 110/57 (74) 93 12/27/17 16:00 113 12/27/17 15:00 110 I/O 12/27/17 12/27/17 12/27/17 12/28/17 12/28/17 12/28/17 07:00 15:00 23:00 07:00 15:00 23:00 Intake Total 1850 ml 1270 ml 2055 ml Output Total 675 ml 550 ml 300 ml Balance 1175 ml 720 ml 1755 ml Intake Oral 150 ml 60 ml 240 ml IV Total 500 ml 1210 ml 1815 ml Other 1200 ml Output Urine Total 575 ml 550 ml 300 ml Estimated Blood Loss 100 ml # Bowel Movements 0 0 Laboratory Laboratory Tests Test 12/28/17 03:33 White Blood Count 11.6 Red Blood Count 3.70 Hemoglobin 10.6 Hematocrit 32.4 Mean Corpuscular Volume 87.6 Mean Corpuscular Hemoglobin 28.6 Mean Corpuscular Hemoglobin Concent 32.7 Red Cell Distribution Width 14.4 Platelet Count 373 Mean Platelet Volume 7.7 Neutrophils (%) (Auto) 72.9 Lymphocytes (%) (Auto) 11.7 Monocytes (%) (Auto) 11.9 Eosinophils (%) (Auto) 2.8 Basophils (%) (Auto) 0.7 Neutrophils # (Auto) 8.5 Lymphocytes # (Auto) 1.4 Monocytes # (Auto) 1.4 Eosinophils # (Auto) 0.3 Basophils # (Auto) 0.1 CBC Comment DIFF FINAL Differential Comment Blood Urea Nitrogen 14 Creatinine 1.01 Random Glucose 101 Total Protein 5.9 Albumin 2.6 Calcium Level 7.9 Alkaline Phosphatase 64 Aspartate Amino Transf (AST/SGOT) 40 Alanine Aminotransferase (ALT/SGPT) 29 Total Bilirubin 0.5 Sodium Level 145 Potassium Level 4.5 Chloride Level 114 Carbon Dioxide Level 21.9 Anion Gap 9 Estimat Glomerular Filtration Rate 55 Imaging Last Impressions Chest CT 12/27/17 0600 Signed Impressions: CONCLUSION: 1. Negative for metastatic disease to the chest 2. Trace ascites and free air in this postoperative patient. Abdomen X-Ray 12/25/17 0000 Signed Impressions: CONCLUSION: Unremarkable bowel gas pattern. Physical Exam HEENT: Normocephalic; atraumatic CHEST: Even/unlabored CARDIAC: RRR ABDOMEN: Abdominal binder in place, did not removed EXTREMITIES: No clubbing, cyanosis, or edema. SKIN: Normal; no rash; no jaundice. ZINC PLATER: Alert and oriented times three. (Camila Ramsay) Assessment and Plan Plan Assessment: - Nausea and vomiting- symptoms began after patient took multiple laxatives because she has not had a BM in a few days. States small one on Saturday. History of IBS-C and takes Miralax daily. Has never had EGD - Circumferential wall thickening within the splenic flexure concerning for colonic adenocarcinoma- with elevated CEA at 623.5 Pt has never had colonoscopy before. Denies family history of colon cancer. Had one isolated episode of blood on toilet paper when she wiped after straining to have a BM, denies any other hematochezia or unintentional weight loss Per pt, seen by Dr. Yañez this morning who is planning on flex sig or colonoscopy this afternoon - Multiple metastatic lesions throughout the liver seen on CT Seen by Oncology who has ordered liver biopsy (12/28) Pt post op day 2 by colorectal- exploratory laparotomy with left colon resection and primary reanastomosis and appendectomy. Liver biopsy was also done intraop. Pt now tolerating liquids with no nausea, no indication for EGD at this time. Oncology following regarding colon mass with possible mets to the liver and colorectal surgery following. Our service will sign off Plan: Further recommendations per colorectal and oncology Our service will sign off, reconsult as needed Pt has been seen and examined by myself and and this note is written on his behalf (Camila Ramsay) Physician Comments Agree with above assessment and plan, please notify us if needed. (Yun Lewis MD) Camila Ramsay Dec 28, 2017 13:31 Yun Lewis MD Dec 28, 2017 18:00
[2017-12-28] MEDS: ATORVASTATIN 10 MG TAB PO SCH (21:31)
[2017-12-28] MEDS: FENOFIBRATE 145 MG TAB PO SCH (21:33)
[2017-12-29] MEDS: D5-NS + KCL 20 MEQ INJ 1,000 ML IV SCH ×2 (01:48→04:06)
[2017-12-29 03:28] LABS: AUTOMATED NEUTROPHIL # 8.4 TH/MM3 (1.8-7.7); BASOPHIL % 0.4 % (0.0-2.0); EOSINOPHIL # 0.7 TH/MM3 (0-0.4); EOSINOPHIL % 6.2 % (0.0-4.0); HEMATOCRIT 29.8 % (35.0-46.0); LYMPH % 11.3 % (9.0-44.0); LYMPHOCYTE # 1.3 TH/MM3 (1.0-4.8); MEAN CELL VOLUME 86.6 FL (80.0-100.0); MEAN CORPUSCULAR HGB CONC 33.4 % (32.0-36.0); MEAN PLATELET VOLUME 7.8 FL (7.0-11.0); MONOCYTE # 1.3 TH/MM3 (0-0.9); NEUT % 71.1 % (16.0-70.0); PLATELET COUNT 341 TH/MM3 (150-450); RED BLOOD COUNT 3.44 MIL/MM3 (4.00-5.30); RED CELL DISTRIBUTION WIDTH 14.1 % (11.6-17.2); WHITE BLOOD COUNT 11.8 TH/MM3 (4.0-11.0)
[2017-12-29 03:49] LABS: ALBUMIN 2.4 GM/DL (3.4-5.0); ALT (GPT) 25 U/L (10-53); AST (GOT) 34 U/L (15-37); BICARBONATE 22.6 MEQ/L (21.0-32.0); BLOOD UREA NITROGEN 8 MG/DL (7-18); CALCIUM 8.1 MG/DL (8.5-10.1); CHLORIDE 109 MEQ/L (98-107); CREATININE 0.75 MG/DL (0.50-1.00); GLOMERULAR FILTRATION RATE 77 ML/MIN (>89); GLUCOSE,RANDOM 97 MG/DL (74-106); SODIUM (NA) 141 MEQ/L (136-145)
[2017-12-29 03:52] LABS: ALKALINE PHOSPHATASE 71 U/L (45-117); TOTAL BILIRUBIN ADULT 0.4 MG/DL (0.2-1.0); TOTAL PROTEIN 5.7 GM/DL (6.4-8.2)
[2017-12-29 04:00] VITALS: BP 140/75; PULSE 101; RESP 16; TEMP 96; O2SAT 90
[2017-12-29] MEDS: PCA - TOTAL MG MORPHINE DELIVERED PER SHIFT SCH (06:00)
[2017-12-29 07:00] VITALS: BP 152/80; PULSE 106; RESP 18; TEMP 100.2; O2SAT 92
[2017-12-29] MEDS: PANTOPRAZOLE SOD 40 MG DELAYED RELEASE TAB PO SCH (08:30)
[2017-12-29] MEDS: FUROSEMIDE 20 MG/2 ML VIAL IV PUSH SCH ×2 (08:31→21:00)
[2017-12-29] MEDS: ACETAMINOPHEN 325 MG TAB PO PRN (08:31)
[2017-12-29] MEDS: PANTOPRAZOLE SODIUM 40 MG VIAL IVP SCH (08:32)
[2017-12-29] MEDS: METOCLOPRAMIDE HCL 10 MG/2 ML VIAL IVS SCH ×2 (08:32→21:38)
--- NOTE | 2017-12-29 09:42 | HHI.PR ---
Subjective Remarks Patient has been advanced to full liquid. No acute complaints today. She is progressing well after surgery. Objective Vital Signs Date Time Temp Pulse Resp B/P (MAP) Pulse Ox O2 Delivery O2 Flow Rate FiO2 12/29/17 07:00 100.2 106 18 152/80 (104) 92 12/29/17 07:00 92 Nasal Cannula 2.00 12/29/17 06:11 93 Nasal Cannula 2.00 12/29/17 06:00 16 12/29/17 04:00 96.0 101 16 140/75 (96) 90 12/29/17 00:00 93 Nasal Cannula 2.00 12/28/17 21:34 16 12/28/17 20:00 92 Nasal Cannula 2.00 12/28/17 20:00 99.5 112 16 155/75 (101) 92 12/28/17 18:00 100 12/28/17 17:00 126 12/28/17 17:00 18 12/28/17 16:00 118 12/28/17 15:00 110 12/28/17 15:00 100.0 114 18 157/82 (107) 91 12/28/17 15:00 94 Nasal Cannula 2.00 12/28/17 14:00 114 12/28/17 13:01 18 12/28/17 13:00 115 12/28/17 12:00 117 12/28/17 11:00 91 Nasal Cannula 2.00 12/28/17 11:00 107 12/28/17 11:00 99.4 113 18 142/77 (98) 91 12/28/17 10:00 106 I/O 12/28/17 12/28/17 12/28/17 12/29/17 12/29/17 12/29/17 07:00 15:00 23:00 07:00 15:00 23:00 Intake Total 2055 ml 600 ml 1420 ml Output Total 300 ml 2250 ml 1100 ml Balance 1755 ml -1650 ml 320 ml Intake Oral 240 ml 600 ml 420 ml IV Total 1815 ml 1000 ml Output Urine Total 300 ml 2250 ml 1100 ml # Bowel Movements 0 0 Result Diagram: 12/29/17 0256 12/29/17 0256 Objective Remarks GENERAL: NAD, A&Ox3 HEAD: Normocephalic. NECK: Supple, trachea midline. No lymphadenopathy. EYES: No scleral icterus. No injection or drainage. CARDIOVASCULAR: Regular rate and rhythm without murmurs, gallops, or rubs. RESPIRATORY: Breath sounds equal bilaterally. No accessory muscle use. GASTROINTESTINAL: Abdomen soft, nondistended. Mild to moderate abdominal tenderness. MUSCULOSKELETAL: No cyanosis, or edema. SKIN: Warm and dry. NEURO: No focal neurological deficitis. A/P Problem List: (1) Intractable abdominal pain ICD Code: R10.9 - Unspecified abdominal pain Status: Acute (2) Colonic mass ICD Code: K63.9 - Disease of intestine, unspecified (3) Liver mass ICD Code: R16.0 - Hepatomegaly, not elsewhere classified Assessment and Plan 67-year-old female admitted for irretractable pain related to colon mass On full liquids now. No nausea. Pain controlled. Follow post op. Continue to monitor CBC and CMP. Transfer to [facility]. Irretractable abdominal pain Colon mass Liver mass Plan for colonoscopy today Pain is improved with narcotics Follow patient clinically Patient have a partial colectomy if needed Tissue samples needed for diagnosis DVT prophylaxis Sanjay Moran MD Dec 29, 2017 09:42
[2017-12-29 11:00] VITALS: BP 147/79; PULSE 102; RESP 18; TEMP 99.7; O2SAT 93
--- NOTE | 2017-12-29 12:20 | HHI.PR ---
Subjective Remarks C/R Surg POD # 3 Temp 100.2, VSS UO adeq +flatus Objective - Vital Signs Date Time Temp Pulse Resp B/P (MAP) Pulse Ox O2 Delivery O2 Flow Rate FiO2 12/29/17 11:00 93 Nasal Cannula 2.00 12/29/17 07:00 100.2 106 18 152/80 (104) Result Diagram: 12/29/17 0256 12/29/17 0256 Objective Remarks PE alert Abd - soft, wound dry, min tympany A/P Assessment and Plan Imp: adv diet decr IVF OOB Resp Rx Maksim Yañez MD Dec 29, 2017 12:20
[2017-12-29] MEDS: metroNIDAZOLE 500 MG INJ 100 ML IV SCH ×2 (14:00→21:40)
[2017-12-29 16:00] VITALS: BP 160/76; PULSE 110; RESP 20; TEMP 98.4; O2SAT 94
[2017-12-29] MEDS: RESP: ALBUTEROL 2.5 MG/IPRATROPIUM 0.5 MG NEB (SCH) NEB ×2 (16:34→20:37)
[2017-12-29 20:00] VITALS: BP 160/80; PULSE 112; RESP 20; TEMP 98.9; O2SAT 92
[2017-12-29] MEDS: FENOFIBRATE 145 MG TAB PO SCH (21:38)
[2017-12-29] MEDS: ATORVASTATIN 10 MG TAB PO SCH (21:38)
[2017-12-30] VITALS (7 sets, daily range): BP systolic 147–166; BP diastolic 67–85; PULSE 110–119; RESP 18–22; TEMP 98.3–99.7; O2SAT 91–97
[2017-12-30] MEDS: D5-NS + KCL 20 MEQ INJ 1,000 ML IV SCH ×2 (02:48→15:18)
[2017-12-30] MEDS: metroNIDAZOLE 500 MG INJ 100 ML IV SCH ×3 (05:34→21:47)
[2017-12-30] MEDS: PANTOPRAZOLE SODIUM 40 MG VIAL IVP SCH (08:01)
[2017-12-30] MEDS: RESP: ALBUTEROL 2.5 MG/IPRATROPIUM 0.5 MG NEB (SCH) NEB ×4 (08:44→19:25)
[2017-12-30] MEDS: METOCLOPRAMIDE HCL 10 MG/2 ML VIAL IVS SCH ×2 (09:02→21:49)
[2017-12-30] MEDS: PANTOPRAZOLE SOD 40 MG DELAYED RELEASE TAB PO SCH (09:02)
[2017-12-30] MEDS: ACETAMINOPHEN/HYDROcodone 325 MG/5 MG TAB PO PRN ×2 (09:02→15:33)
[2017-12-30] MEDS: FUROSEMIDE 20 MG/2 ML VIAL IV PUSH SCH ×2 (09:03→21:48)
--- NOTE | 2017-12-30 09:27 | HHI.PR ---
Subjective Remarks With some shortness of breath requiring 2 L by nasal cannula at this time. Has pain at the surgical site however she was able to ambulate with physical therapy today. Feels tired now. No fever or chills. She complains of constipation will like to try some medications. No other complaints at this time. Objective Vitals Vital Signs Date Time Temp Pulse Resp B/P (MAP) Pulse Ox O2 Delivery O2 Flow Rate FiO2 12/30/17 08:47 97 Nasal Cannula 2.00 12/30/17 00:00 99.4 119 20 151/68 (95) 92 12/29/17 21:34 94 Nasal Cannula 2.00 12/29/17 20:00 98.9 112 20 160/80 (106) 92 12/29/17 16:00 98.4 110 20 160/76 (104) 94 12/29/17 11:00 93 Nasal Cannula 2.00 12/29/17 11:00 99.7 102 18 147/79 (101) 93 I/O 12/29/17 12/29/17 12/29/17 12/30/17 12/30/17 12/30/17 06:59 14:59 22:59 06:59 14:59 22:59 Intake Total 1420 ml 480 ml 800 ml 200 ml Output Total 1100 ml 1100 ml 700 ml 300 ml Balance 320 ml -620 ml 800 ml -500 ml -300 ml Intake Oral 420 ml 480 ml 600 ml IV Total 1000 ml 200 ml 200 ml Output Urine Total 1100 ml 1100 ml 700 ml 300 ml # Voids 1 # Bowel Movements 0 Result Diagram: 12/29/17 0256 12/29/17 0256 Imaging Last Impressions Chest CT 12/27/17 0600 Signed Impressions: CONCLUSION: 1. Negative for metastatic disease to the chest 2. Trace ascites and free air in this postoperative patient. Abdomen X-Ray 12/25/17 0000 Signed Impressions: CONCLUSION: Unremarkable bowel gas pattern. Objective Remarks GENERAL: 67 yo F alert and oriented, appears in nad. CARDIOVASCULAR: Regular rate and rhythm. RESPIRATORY: No accessory muscle use. Clear to auscultation. Breath sounds equal bilaterally. GASTROINTESTINAL: Abdomen soft, non-tender, nondistended. Hepatic and splenic margins not palpable. MUSCULOSKELETAL: Extremities without clubbing, cyanosis, or edema. No obvious deformities. NEUROLOGICAL: Awake and alert. No obvious cranial nerve deficits. Motor grossly within normal limits. Five out of 5 muscle strength in the arms and legs. Normal speech. PSYCHIATRIC: Appropriate mood and affect; insight and judgment normal. A/P Assessment and Plan 67-year-old female admitted for irretractable pain related to colon mass On full liquids now advance as tolerated per surgeon indications. No nausea. Pain controlled. Follow post op. Continue to monitor CBC and CMP. Intractable abdominal pain Colon mass Liver mass Plan for colonoscopy today Pain is improved with narcotics Follow patient clinically Patient have a partial colectomy if needed Tissue samples needed for diagnosis Constipation. Start bowel regimen. DVT prophylaxis SCDs Discussed with the patient, nurse Presley wagner and cleared by CRS Holley Leung MD Dec 30, 2017 09:27
--- NOTE | 2017-12-30 15:24 | HHI.FF ---
Face to Face Verification Diagnosis: (1) Intractable abdominal pain (2) Liver mass (3) Colonic mass Physical Therapy Order: Evaluate and Treat Home Health Nursing Order: Medical education Signs/symptoms of disease process Medication education-adverse effect Nursing assessment with vital signs I have seen patient Brenda Doe on 12/30/17. My clinical findings support the need for the requested home health care services because: Ltd mobility - disease progression I certify that my clinical findings support that this patient is homebound because: Post-op weakness Holley Leung MD Dec 30, 2017 15:24
--- NOTE | 2017-12-30 15:24 | HHI.DS ---
Discharge Summary Admission Date December 25, 2017 at 18:12 Discharge Date: Jan 03, 2018 Admitting Diagnosis Intractable abdominal pain (1) Liver mass ICD Code: R16.0 - Hepatomegaly, not elsewhere classified (2) Colonic mass ICD Code: K63.9 - Disease of intestine, unspecified (3) Hypoxia ICD Code: R09.02 - Hypoxemia Procedures partial colectomy by Dr Yañez Brief History - From Admission 67-year-old white female being admitted for intractable abdominal pain. Patient was in her usual state of health being discharged from the emergency department yesterday for abdominal pain secondary to suspected colorectal cancer. She went home to try to deal with abdominal pain but it worsened in intensity and when she tried to ingest anything other than water she would vomit it including some V8 tomato juice. She tried also some MiraLAX and local magnesia and some citrate and she also vomited this as well. She has not eaten anything for a few days and still has no appetite. Denies any fevers. Still has not had a bowel movement, has not had a bowel movement since last Saturday which is about 5 days ago. Patient describes her pain at worst out of a 6/10 intensity and describes it as a gas-like pain. She denies ever having had a colonoscopy done even though she reports that her has reminded her multiple times. Denies any family history of colorectal cancer. Had a CT scan performed yesterday and ER visit which showed lesions suspicious for colorectal cancer with possible liver metastases. Had a outpatient appointment scheduled Dr. Yañez tomorrow but obviously will not be able to make it due to presenting to the ER was intractable symptoms. Had x-ray done of her abdomen today which shows no free air. Patient has a history of endometrial cancer which was managed with hysterectomy back in 2013 with no adjunctive treatment needed. CBC/BMP: 12/29/17 0256 12/29/17 0256 Significant Findings Laboratory Tests Test 12/28/17 03:33 12/29/17 02:56 White Blood Count 11.6 TH/MM3 (4.0-11.0) 11.8 TH/MM3 (4.0-11.0) Red Blood Count 3.70 MIL/MM3 (4.00-5.30) 3.44 MIL/MM3 (4.00-5.30) Hemoglobin 10.6 GM/DL (11.6-15.3) 10.0 GM/DL (11.6-15.3) Hematocrit 32.4 % (35.0-46.0) 29.8 % (35.0-46.0) Neutrophils (%) (Auto) 72.9 % (16.0-70.0) 71.1 % (16.0-70.0) Monocytes (%) (Auto) 11.9 % (0.0-8.0) 11.0 % (0.0-8.0) Neutrophils # (Auto) 8.5 TH/MM3 (1.8-7.7) 8.4 TH/MM3 (1.8-7.7) Monocytes # (Auto) 1.4 TH/MM3 (0-0.9) 1.3 TH/MM3 (0-0.9) Creatinine 1.01 MG/DL (0.50-1.00) Total Protein 5.9 GM/DL (6.4-8.2) 5.7 GM/DL (6.4-8.2) Albumin 2.6 GM/DL (3.4-5.0) 2.4 GM/DL (3.4-5.0) Calcium Level 7.9 MG/DL (8.5-10.1) 8.1 MG/DL (8.5-10.1) Aspartate Amino Transf (AST/SGOT) 40 U/L (15-37) Chloride Level 114 MEQ/L (98-107) 109 MEQ/L (98-107) Estimat Glomerular Filtration Rate 55 ML/MIN (>89) 77 ML/MIN (>89) Eosinophils (%) (Auto) 6.2 % (0.0-4.0) Eosinophils # (Auto) 0.7 TH/MM3 (0-0.4) Imaging Last Impressions Chest CT 12/27/17 0600 Signed Impressions: CONCLUSION: 1. Negative for metastatic disease to the chest 2. Trace ascites and free air in this postoperative patient. Abdomen X-Ray 12/25/17 0000 Signed Impressions: CONCLUSION: Unremarkable bowel gas pattern. PE at Discharge GENERAL: 67 yo F alert and oriented, appears in nad. CARDIOVASCULAR: Regular rate and rhythm. RESPIRATORY: No accessory muscle use. Clear to auscultation. Breath sounds equal bilaterally. GASTROINTESTINAL: Abdomen soft, non-tender, nondistended. Hepatic and splenic margins not palpable. MUSCULOSKELETAL: Extremities without clubbing, cyanosis, or edema. No obvious deformities. NEUROLOGICAL: Awake and alert. No obvious cranial nerve deficits. Motor grossly within normal limits. Five out of 5 muscle strength in the arms and legs. Normal speech. PSYCHIATRIC: Appropriate mood and affect; insight and judgment normal. Pt update on day of discharge Had a normal BM Sattign well on room air and ambulating without problems. No pain No much cough feels much better Hospital Course 67-year-old female admitted for irretractable pain related to colon mass On reg diet tolerated well, had a normal BM. No nausea. Pain controlled. Follow post op. Continue to monitor CBC and CMP. Intractable abdominal pain Colon mass Liver mass had colonoscopy Pain is improved with narcotics Follow patient clinically Patient had partial colectomy Tissue samples needed for diagnosis Constipation. Start bowel regimen. Hypoxia 2/2 bilat PNA and pleural effusion Hypoxia and tachycardia. Doppler US no DVT. CTA no PE however shows bilateral PNA and pleural effusions. Patient is noted dessating at 87 % while in bed when talking without O2 . O2 supplement to keep O2 sat > 92%. Check blood cx, sputum cultures, Legionella and pneumococcal urine antigen. Started on azithromycin and Rocephin IV antibiotics Encourage spirometry, Acapella Duo nebs as needed Patient is also anxious and gets hypoxic. Will start small dose of xanax DVT prophylaxis SCDs Discussed with the patient, nurse, family at bedside Patient is however developing bilateral pneumonia and pleural effusion. Started on antibiotic by IV Repeat O2 walking test 01/03/18 patient passed O2 walking test. No need for O2 at discharge. Discussed with CM. Cleared by Dr Yañez for DC Patient is discharged home in stable condition to follow up as OP with PCP and consultants. To follow up as OP with PCP and consultants as OP. Pt Condition on Discharge: Stable Discharge Disposition: Disch w/ Home Health Serv Discharge Time: > 30 minutes Discharge Instructions DIET: Follow Instructions for: Heart Healthy Diet Activities you can perform: Regular-No Restrictions Follow up Referrals: Appointment for Follow Up Appointment for Follow Up Colorectal Surgery - 1 Week Oncology - 2 Weeks PCP Follow-up - 2-3 Days PCP Follow-up New Medications: Cefuroxime (Ceftin) 250 Mg Tab 250 MG PO BID for infection, #14 TAB Docusate Sodium (Colace) 100 Mg Capsule 100 MG PO BID for Prevent Constipation, #60 CAP 0 Refills Lactobacillus Acidophilus (Lactinex) 1 Chew 1 TAB CHEW DAILY for Nutritional Supplement, #30 TAB 0 Refills Ondansetron (Zofran) 4 Mg Tab 4 MG PO Q6HR PRN for NAUSEA OR VOMITING, #30 TAB 0 Refills Oxygen tank (Oxygen tank) 1 Ea Tank LITER BRADLEY.CANULA CONTINUOUS for HYPOXEMIA PREVENTION, #2 Oxygen Concentrator Portable Gaseous 2 L/min via Nasal Cannula Continuous For 99 months Hydrocodone/Acetaminophen (Hydrocodone-Acetamin 5-325 mg) 5 Mg-325 Mg Tablet 1 TAB PO Q4H PRN for pain management , #30 TAB Continued Medications: Aspirin (Aspirin) 81 Mg Chew 81 MG CHEW DAILY, TAB 0 Refills Atorvastatin (Lipitor) 10 Mg Tab 10 MG PO HS for Cholesterol Management, #30 TAB 0 Refills Fenofibrate Micronized (Fenofibrate Micronized) 134 Mg Cap 134 MG PO HS, #30 CAP 0 Refills Holley Leung MD Dec 30, 2017 15:24
[2017-12-30] MEDS ORDERED: NALOXONE HCL 0.4 MG/ML AMP IV PUSH PRN (15:45)
[2017-12-30] MEDS ORDERED: BISACODYL 10 MG SUPP RECTAL PRN (15:45)
[2017-12-30] MEDS ORDERED: SENNOSIDES 8.6 MG TAB PO PRN (15:45)
[2017-12-30] MEDS ORDERED: LACTULOSE SYRUP 20 GM/30 ML CUP PO PRN (15:45)
[2017-12-30] MEDS ORDERED: MAGNESIUM HYDROXIDE SUSP 30 ML CUP PO PRN (15:45)
[2017-12-30] MEDS ORDERED: DOCUSATE SODIUM 50 MG/SENNA 8.6 MG TAB PO SCH (21:00)
[2017-12-30] MEDS: FENOFIBRATE 145 MG TAB PO SCH (21:46)
[2017-12-30] MEDS: ATORVASTATIN 10 MG TAB PO SCH (21:46)
--- NOTE | 2017-12-30 22:50 | HHI.PR ---
Subjective Remarks C/R Surg POD # 4 Temp down, VSS UO adeq +flatus Objective - Vital Signs Date Time Temp Pulse Resp B/P (MAP) Pulse Ox O2 Delivery O2 Flow Rate FiO2 12/30/17 20:00 99.1 110 18 152/70 (97) 97 12/30/17 19:28 Nasal Cannula 2.00 Result Diagram: 12/29/17 0256 12/29/17 0256 Objective Remarks PE alert Abd - soft, wound dry, min tympany A/P Assessment and Plan Imp: adv diet decr IVF OOB Resp Rx Maksim Yañez MD Dec 30, 2017 22:50
[2017-12-31] VITALS (7 sets, daily range): BP systolic 128–160; BP diastolic 75–95; PULSE 100–112; RESP 18–20; TEMP 97.7–99; O2SAT 92–100
[2017-12-31] MEDS: D5-NS + KCL 20 MEQ INJ 1,000 ML IV SCH ×2 (00:16→15:52)
[2017-12-31] MEDS: ACETAMINOPHEN/HYDROcodone 325 MG/5 MG TAB PO PRN (02:41)
[2017-12-31] MEDS: metroNIDAZOLE 500 MG INJ 100 ML IV SCH (05:03)
[2017-12-31] MEDS: RESP: ALBUTEROL 2.5 MG/IPRATROPIUM 0.5 MG NEB (SCH) NEB ×4 (08:30→20:16)
[2017-12-31] MEDS: PANTOPRAZOLE SOD 40 MG DELAYED RELEASE TAB PO SCH (08:35)
[2017-12-31] MEDS: ONDANSETRON ODT 4 MG TAB PO PRN (08:35)
[2017-12-31] MEDS: PANTOPRAZOLE SODIUM 40 MG VIAL IVP SCH (08:36)
[2017-12-31] MEDS: FUROSEMIDE 20 MG/2 ML VIAL IV PUSH SCH ×2 (08:37→20:32)
[2017-12-31] MEDS: METOCLOPRAMIDE HCL 10 MG/2 ML VIAL IVS PRN (11:39)
[2017-12-31] MEDS ORDERED: HYDR-3516 PO (13:09)
[2017-12-31] MEDS ORDERED: COLA100C5 PO (13:09)
--- NOTE | 2017-12-31 13:13 | HHI.PR ---
Subjective Remarks Small bowel movement today in the morning, passing gas. No fever or chills. No cough. Encourage incentive spirometry. Patient is however desaturating without oxygen. She is saturating 87 while on room air. Will have oxygen walking test for discharge. With nausea. Received antiemetics and improving. Not eating much secondary to nausea. She did not vomit. Objective Vitals Vital Signs Date Time Temp Pulse Resp B/P (MAP) Pulse Ox O2 Delivery O2 Flow Rate FiO2 12/31/17 12:00 98.3 107 18 128/75 (92) 92 12/31/17 08:41 Nasal Cannula 2.00 12/31/17 08:37 93 Nasal Cannula 2.00 12/31/17 08:00 98.4 100 20 155/80 (105) 92 12/31/17 00:17 99.0 108 18 149/85 (106) 96 12/30/17 20:00 99.1 110 18 152/70 (97) 97 12/30/17 19:28 92 Nasal Cannula 2.00 12/30/17 16:00 99.7 112 20 166/85 (112) 92 I/O 12/30/17 12/30/17 12/30/17 12/31/17 12/31/17 12/31/17 07:00 15:00 23:00 07:00 15:00 23:00 Intake Total 200 ml 2200 ml 760 ml Output Total 700 ml 300 ml 800 ml 900 ml 1100 ml Balance -500 ml -300 ml 1400 ml -140 ml -1100 ml Intake Oral 2200 ml 760 ml IV Total 200 ml Output Urine Total 700 ml 300 ml 800 ml 900 ml 1100 ml # Voids 3 # Bowel Movements 1 Result Diagram: 12/29/17 0256 12/29/17 0256 Imaging Last Impressions Chest CT 12/27/17 0600 Signed Impressions: CONCLUSION: 1. Negative for metastatic disease to the chest 2. Trace ascites and free air in this postoperative patient. Abdomen X-Ray 12/25/17 0000 Signed Impressions: CONCLUSION: Unremarkable bowel gas pattern. Objective Remarks GENERAL: 67 yo F alert and oriented, appears in nad. CARDIOVASCULAR: Regular rate and rhythm. RESPIRATORY: No accessory muscle use. Clear to auscultation. Breath sounds equal bilaterally. GASTROINTESTINAL: Abdomen soft, non-tender, nondistended. Hepatic and splenic margins not palpable. MUSCULOSKELETAL: Extremities without clubbing, cyanosis, or edema. No obvious deformities. NEUROLOGICAL: Awake and alert. No obvious cranial nerve deficits. Motor grossly within normal limits. Five out of 5 muscle strength in the arms and legs. Normal speech. PSYCHIATRIC: Appropriate mood and affect; insight and judgment normal. A/P Assessment and Plan 67-year-old female admitted for irretractable pain related to colon mass On full liquids now advance as tolerated per surgeon indications. No nausea. Pain controlled. Follow post op. Continue to monitor CBC and CMP. Intractable abdominal pain Colon mass Liver mass had colonoscopy Pain is improved with narcotics Follow patient clinically Patient had partial colectomy Tissue samples needed for diagnosis Constipation. Start bowel regimen. Hypoxia and tachycardia. Will do doppler US to r/o DVT and will do CTA to r/o PE if need. D dimer will be elevated after surgery so no reliable test at this time. Patient is noted dessating at 87 % while in bed when talking without O2 . O2 supplement to keep O2 sat > 92%. Will do CXR Patient is also anxious and gets hypoxic. Will start small dose of xanax DVT prophylaxis SCDs Discussed with the patient, nurse, family at bedside DC when improves and cleared by CRS Holley Leung MD Dec 31, 2017 13:13
[2017-12-31] MEDS ORDERED: OXYGENTANK NAS.CANULA (15:39)
[2017-12-31] MEDS ORDERED: ZOFR4TAB PO (15:42)
[2017-12-31] MEDS: ENOXAPARIN SODIUM 40 MG/0.4 ML SYRINGE SQ SCH (18:00)
[2017-12-31] MEDS ORDERED: IOHEXOL 350 MG/ML 10 ML VIAL (for RAD DIAG) IVCONTRAST ONE (19:58)
--- NOTE | 2017-12-31 20:01 | RADRPT ---
EXAM DATE: 12/31/2017 7:57 PM EDT AGE/SEX: 67 years / Female INDICATIONS: Shortness of breath. CLINICAL DATA: This is the patient's initial encounter. Patient reports that signs and symptoms have been present for 1 day and indicates a pain score of 2/10. MEDICAL/SURGICAL HISTORY: Hypertension. Endometrial cancer. Hysterectomy. RADIATION DOSE: 10.58 CTDI (mGy) COMPARISON: No prior [facility] exams available for comparison. TECHNIQUE: Volumetric scanning was performed using a multi-row detector CT scanner during bolus infu augusto of 73 ml Omnipaque 350 (iohexol) nonionic water-soluble contrast as a single exam dose. The nisih a was post processed with a variety of visualization algorithms including full volume maximum intensi ty projection and sliding thin slab reformation. Using automated exposure control and adjustment of the mA and/or kV according to patient size, radiation dose was kept as low as reasonably achievable t o obtain optimal diagnostic quality images. FINDINGS: Minimal biapical parenchymal scarring. There is consolidation and air bronchogram formation within david th lower lobes. There is linear atelectasis in the right lower lobe superior segment. There is no nat nopathy. There are bilateral pleural effusions. I do not see a pulmonary embolism. Degenerative boss es of the spine are noted. CONCLUSION: 1. No definite evidence for pulmonary embolism. 2. Bilateral effusions, right greater than left and consolidation. Electronically signed by: Vivek Alvares MD 12/31/2017 8:00 PM EDT
[2017-12-31] MEDS: FENOFIBRATE 145 MG TAB PO SCH (20:30)
[2017-12-31] MEDS: ATORVASTATIN 10 MG TAB PO SCH (20:30)
--- NOTE | 2017-12-31 22:38 | HHI.PR ---
Subjective Remarks C/R Surg POD # 5 Temp down, VSS UO adeq +flatus/BM Objective - Vital Signs Date Time Temp Pulse Resp B/P (MAP) Pulse Ox O2 Delivery O2 Flow Rate FiO2 12/31/17 20:16 94 Nasal Cannula 2.00 12/31/17 20:00 97.7 108 20 160/95 (116) Result Diagram: 12/29/176 12/29/17 0256 Objective Remarks PE alert Abd - soft, wound dry, min tympany A/P Assessment and Plan Imp: adv diet decr IVF OOB Resp Rx c/o nausea - dc narcotics Maksim Yañez MD Dec 31, 2017 22:38
[2018-01-01] VITALS (7 sets, daily range): BP systolic 136–157; BP diastolic 67–85; PULSE 95–107; RESP 17–18; TEMP 97.6–98.6; O2SAT 91–95
[2018-01-01] MEDS: D5-NS + KCL 20 MEQ INJ 1,000 ML IV SCH ×2 (04:45→16:14)
[2018-01-01 08:33] LABS: AUTOMATED NEUTROPHIL # 7.1 TH/MM3 (1.8-7.7); BASOPHIL # 0.1 TH/MM3 (0-0.2); BASOPHIL % 0.6 % (0.0-2.0); EOSINOPHIL % 9.2 % (0.0-4.0); HEMATOCRIT 30.1 % (35.0-46.0); HEMOGLOBIN 10.4 GM/DL (11.6-15.3); LYMPH % 11.4 % (9.0-44.0); LYMPHOCYTE # 1.2 TH/MM3 (1.0-4.8); MEAN CELL VOLUME 85.4 FL (80.0-100.0); MEAN CORPUSCULAR HEMOGLOBIN 29.5 PG (27.0-34.0); MEAN CORPUSCULAR HGB CONC 34.5 % (32.0-36.0); MEAN PLATELET VOLUME 7.9 FL (7.0-11.0); MONO % 12.6 % (0.0-8.0); MONOCYTE # 1.4 TH/MM3 (0-0.9); NEUT % 66.2 % (16.0-70.0); PLATELET COUNT 384 TH/MM3 (150-450); RED BLOOD COUNT 3.52 MIL/MM3 (4.00-5.30); RED CELL DISTRIBUTION WIDTH 14.4 % (11.6-17.2); WHITE BLOOD COUNT 10.8 TH/MM3 (4.0-11.0)
[2018-01-01] MEDS: PANTOPRAZOLE SODIUM 40 MG VIAL IVP SCH (09:00)
[2018-01-01] MEDS: PANTOPRAZOLE SOD 40 MG DELAYED RELEASE TAB PO SCH (09:10)
[2018-01-01] MEDS: FUROSEMIDE 20 MG/2 ML VIAL IV PUSH SCH ×2 (09:10→19:56)
[2018-01-01 09:11] LABS: BICARBONATE 24.5 MEQ/L (21.0-32.0); CALCIUM 9.3 MG/DL (8.5-10.1); CREATININE 0.67 MG/DL (0.50-1.00)
[2018-01-01] MEDS: METOCLOPRAMIDE HCL 10 MG/2 ML VIAL IVS PRN (09:14)
--- NOTE | 2018-01-01 09:19 | HHI.PR ---
Subjective Remarks The patient is noted hypoxic. She is saturating well liters by nasal cannula. Patient's pneumonia. CT shows no PE. Also no DVT per Doppler ultrasound of the lower extremities. Encourage incentive spirometry, Acapella. Started on IV antibiotics. Denies having any chest pain. She feels short of breath and she is still anxious. Some nausea in the morning however no vomiting says she is able to eat. No much abdominal pain. Objective Vitals Vital Signs Date Time Temp Pulse Resp B/P (MAP) Pulse Ox O2 Delivery O2 Flow Rate FiO2 01/01/18 00:00 98.6 107 18 157/67 (97) 95 12/31/17 20:16 94 Nasal Cannula 2.00 12/31/17 20:00 2.00 12/31/17 20:00 97.7 108 20 160/95 (116) 100 12/31/17 18:15 2.00 12/31/17 16:00 112 20 133/89 (104) 93 12/31/17 12:00 98.3 107 18 128/75 (92) 92 I/O 12/31/17 12/31/17 12/31/17 01/01/18 01/01/18 01/01/18 07:00 15:00 23:00 07:00 15:00 23:00 Intake Total 760 ml 2200 ml 240 ml Output Total 900 ml 1100 ml Balance -140 ml -1100 ml 2200 ml 240 ml Intake Oral 760 ml 2200 ml 240 ml Output Urine Total 900 ml 1100 ml # Voids 3 5 3 # Bowel Movements 1 0 Result Diagram: 01/01/18 0734 01/01/18 [address] Angiography 12/31/17 0000 Signed Impressions: CONCLUSION: 1. No definite evidence for pulmonary embolism. 2. Bilateral effusions, right greater than left and consolidation. Chest CT 12/27/17 0600 Signed Impressions: CONCLUSION: 1. Negative for metastatic disease to the chest 2. Trace ascites and free air in this postoperative patient. Abdomen X-Ray 12/25/17 0000 Signed Impressions: CONCLUSION: Unremarkable bowel gas pattern. Objective Remarks GENERAL: 67 yo F alert and oriented, appears in nad. CARDIOVASCULAR: Regular rate and rhythm. RESPIRATORY: No accessory muscle use Decreased breath sounds bilaterally. bronchial sounds bibasilar. GASTROINTESTINAL: Abdomen soft, non-tender, nondistended. Hepatic and splenic margins not palpable. MUSCULOSKELETAL: Extremities without clubbing, cyanosis, or edema. No obvious deformities. NEUROLOGICAL: Awake and alert. No obvious cranial nerve deficits. Motor grossly within normal limits. Five out of 5 muscle strength in the arms and legs. Normal speech. PSYCHIATRIC: Appropriate mood and affect; insight and judgment normal. A/P Assessment and Plan 67-year-old female admitted for irretractable pain related to colon mass On full liquids now advance as tolerated per surgeon indications. No nausea. Pain controlled. Follow post op. Continue to monitor CBC and CMP. Intractable abdominal pain Colon mass Liver mass had colonoscopy Pain is improved with narcotics Follow patient clinically Patient had partial colectomy Tissue samples needed for diagnosis Constipation. Start bowel regimen. Hypoxia 2/2 bilat PNA and pleural effusion Hypoxia and tachycardia. Doppler US no DVT. CTA no PE however shows bilateral PNA and pleural effusions. Patient is noted dessating at 87 % while in bed when talking without O2 . O2 supplement to keep O2 sat > 92%. Check blood cx, sputum cultures, Legionella and pneumococcal urine antigen. Started on azithromycin and Rocephin IV antibiotics Encourage spirometry, Acapella Duo nebs as needed Patient is also anxious and gets hypoxic. Will start small dose of xanax DVT prophylaxis SCDs Discussed with the patient, nurse, family at bedside DC when improves and cleared by CRS Patient is however developing bilateral pneumonia and pleural effusion. Started on antibiotic by IV Possible discharge 2 days if she improves. Holley Leung MD Jan 01, 2018 09:19
[2018-01-01] MEDS: RESP: ALBUTEROL 2.5 MG/IPRATROPIUM 0.5 MG NEB (SCH) NEB ×3 (09:24→20:57)
[2018-01-01] MEDS ORDERED: RESP: ALBUTEROL 2.5 MG/IPRATROPIUM 0.5 MG NEB (PRN) NEB (09:30)
[2018-01-01] MEDS ORDERED: POTASSIUM CHLORIDE 10 MEQ CONTROLLED RELEASE TAB PO ONE (09:30)
--- NOTE | 2018-01-01 09:31 | RADRPT ---
EXAM DATE: 01/01/2018 9:24 AM EDT AGE/SEX: 67 years / Female INDICATIONS: Bilateral leg pain. CLINICAL DATA: This is the patient's initial encounter. Patient reports that signs and symptoms have been present for 2 days and indicates a pain score of 2/10. MEDICAL/SURGICAL HISTORY: Hypercholesterolemia. Hypertension. Mitral valve prolapse. Hyperlipi demia. IBS. Endometrial cancer. Hysterectomy. COMPARISON: No prior [facility] exams available for comparison. No external comparison. TECHNIQUE: Venous ultrasound of both lower extremities was performed from the inguinal ligament to t he proximal calf. Real-time, color Doppler and spectral tracing, compression and augmentation techni ques were used. FINDINGS: Right Leg: There is normal compressibility of the deep venous system from the inguinal region to the proximal calf. No echogenic clot is seen in the lumen of the common femoral, femoral, popliteal, an d posterior tibial veins. There is a normal response of the venous system to proximal and distal aug mentation and respiration. Left Leg: There is normal compressibility of the deep venous system from the inguinal region to the proximal calf. No echogenic clot is seen in the lumen of the common femoral, femoral, popliteal, and posterior tibial veins. There is a normal response of the venous system to proximal and distal augm entation and respiration. CONCLUSION: No DVT is identified within either lower extremity. Electronically signed by: Fran Cox MD 01/01/2018 9:30 AM EDT
[2018-01-01] MEDS ORDERED: FUROSEMIDE 20 MG TAB PO ONE (10:00)
[2018-01-01] MEDS: cefTRIAXone INJ 1,000 MG in SODIUM CHLORIDE 0.9% INJ 100 ML IV SCH (10:30)
[2018-01-01] MEDS: AZITHROMYCIN INJ 500 MG in SODIUM CHLOR 0.9% 250 ML INJ 250 ML IV SCH (11:23)
[2018-01-01] MEDS: ENOXAPARIN SODIUM 40 MG/0.4 ML SYRINGE SQ SCH (16:04)
[2018-01-01] MEDS: ONDANSETRON ODT 4 MG TAB PO PRN (16:37)
--- NOTE | 2018-01-01 19:11 | EKG ---
Date Performed: 12/31/2017 Time Performed: 19:21:50 PTAGE: 67 years EKG: SINUS TACHYCARDIA POSSIBLE RIGHT VENTRICULAR CONDUCTION DELAY NONSPECIFIC T-WAVE ABNORMALIT Y ABNORMAL RHYTHM ECG PREVIOUS TRACING : 12/24/2017 06.30 Since the previous tracing, no significant change noted DOCTOR: Balbir Galarza Interpretating Date/Time 01/01/2018 19:11:07
[2018-01-01] MEDS: FENOFIBRATE 145 MG TAB PO SCH (19:56)
[2018-01-01] MEDS: ATORVASTATIN 10 MG TAB PO SCH (19:56)
[2018-01-02] VITALS: BP 141/65; PULSE 100; RESP 17; TEMP 98; O2SAT 94
[2018-01-02] MEDS: D5-NS + KCL 20 MEQ INJ 1,000 ML IV SCH ×3 (05:03→20:54)
[2018-01-02] MEDS: PANTOPRAZOLE SODIUM 40 MG VIAL IVP SCH (07:46)
[2018-01-02] MEDS: RESP: ALBUTEROL 2.5 MG/IPRATROPIUM 0.5 MG NEB (SCH) NEB ×3 (07:50→20:00)
[2018-01-02 07:52] VITALS: O2SAT 95
[2018-01-02 08:00] VITALS: BP 137/68; PULSE 94; RESP 18; TEMP 98.5; O2SAT 93
--- NOTE | 2018-01-02 08:26 | HHI.PR ---
Subjective Remarks Ambulates in the hallways/ Feels much better. Sattign well now on room air. No cough. No n/v/d/c. Able to eat No fever or chills. Objective Vitals Vital Signs Date Time Temp Pulse Resp B/P (MAP) Pulse Ox O2 Delivery O2 Flow Rate FiO2 01/02/18 07:52 95 Nasal Cannula 21 01/02/18 00:00 98.0 100 17 141/65 (90) 94 01/01/18 21:00 Room Air 01/01/18 20:58 91 01/01/18 20:00 98.6 105 17 149/85 (106) 94 01/01/18 16:00 97.6 102 17 143/76 (98) 93 01/01/18 12:00 98.0 104 17 156/71 (99) 95 01/01/18 09:27 Nasal Cannula 2.00 01/01/18 09:24 92 21 I/O 01/01/18 01/01/18 01/01/18 01/02/18 01/02/18 01/02/18 07:00 15:00 23:00 07:00 15:00 23:00 Intake Total 240 ml 625 ml 480 ml Balance 240 ml 625 ml 480 ml Intake Oral 240 ml 625 ml 480 ml # Voids 3 6 3 # Bowel Movements 0 2 0 Result Diagram: 01/01/18 0734 01/01/18 0734 Imaging Last Impressions Lower Extremity Ultrasound 01/01/18 0000 Signed Impressions: CONCLUSION: No DVT is identified within either lower extremity. CT Angiography 12/31/17 0000 Signed Impressions: CONCLUSION: 1. No definite evidence for pulmonary embolism. 2. Bilateral effusions, right greater than left and consolidation. Chest CT 12/27/17 0600 Signed Impressions: CONCLUSION: 1. Negative for metastatic disease to the chest 2. Trace ascites and free air in this postoperative patient. Abdomen X-Ray 12/25/17 0000 Signed Impressions: CONCLUSION: Unremarkable bowel gas pattern. Objective Remarks GENERAL: 67 yo F alert and oriented, appears in nad. CARDIOVASCULAR: Regular rate and rhythm. RESPIRATORY: No accessory muscle use Decreased breath sounds bilaterally. bronchial sounds bibasilar. GASTROINTESTINAL: Abdomen soft, non-tender, nondistended. Hepatic and splenic margins not palpable. MUSCULOSKELETAL: Extremities without clubbing, cyanosis, or edema. No obvious deformities. NEUROLOGICAL: Awake and alert. No obvious cranial nerve deficits. Motor grossly within normal limits. Five out of 5 muscle strength in the arms and legs. Normal speech. PSYCHIATRIC: Appropriate mood and affect; insight and judgment normal. A/P Assessment and Plan 67-year-old female admitted for irretractable pain related to colon mass On full liquids now advance as tolerated per surgeon indications. No nausea. Pain controlled. Follow post op. Continue to monitor CBC and CMP. Intractable abdominal pain Colon mass Liver mass had colonoscopy Pain is improved with narcotics Follow patient clinically Patient had partial colectomy Tissue samples needed for diagnosis Constipation. Start bowel regimen. Hypoxia 2/2 bilat PNA and pleural effusion Hypoxia and tachycardia. Doppler US no DVT. CTA no PE however shows bilateral PNA and pleural effusions. Patient is noted dessating at 87 % while in bed when talking without O2 . O2 supplement to keep O2 sat > 92%. Check blood cx, sputum cultures, Legionella and pneumococcal urine antigen. Started on azithromycin and Rocephin IV antibiotics Encourage spirometry, Acapella Duo nebs as needed Patient is also anxious and gets hypoxic. Will start small dose of xanax DVT prophylaxis SCDs Discussed with the patient, nurse, family at bedside DC when improves and cleared by CRS Patient is however developing bilateral pneumonia and pleural effusion. Started on antibiotic by IV Possible discharge tomorrow, if blood cx neg and afebrile, she is improving. Order repeat O2 walking test Holley Leung MD Jan 02, 2018 08:26
[2018-01-02] MEDS: FUROSEMIDE 20 MG/2 ML VIAL IV PUSH SCH (09:39)
[2018-01-02] MEDS: cefTRIAXone INJ 1,000 MG in SODIUM CHLORIDE 0.9% INJ 100 ML IV SCH (09:39)
[2018-01-02] MEDS: PANTOPRAZOLE SOD 40 MG DELAYED RELEASE TAB PO SCH (09:39)
[2018-01-02] MEDS: AZITHROMYCIN INJ 500 MG in SODIUM CHLOR 0.9% 250 ML INJ 250 ML IV SCH (11:01)
[2018-01-02] MEDS: ONDANSETRON ODT 4 MG TAB PO PRN (11:18)
[2018-01-02 12:00] VITALS: BP 131/70; PULSE 99; RESP 16; TEMP 98.3; O2SAT 92
[2018-01-02] MEDS ORDERED: LACTCHW3 CHEW (13:37)
[2018-01-02] MEDS ORDERED: CEFU1TAB18 PO (13:37)
[2018-01-02 16:00] VITALS: BP 137/77; PULSE 119; RESP 18; TEMP 98.2; O2SAT 92
[2018-01-02] MEDS: ENOXAPARIN SODIUM 40 MG/0.4 ML SYRINGE SQ SCH (17:47)
[2018-01-02 20:00] VITALS: BP 122/58; PULSE 99; RESP 18; TEMP 98.4; O2SAT 96
[2018-01-02] MEDS: FENOFIBRATE 145 MG TAB PO SCH (20:54)
[2018-01-02] MEDS: ATORVASTATIN 10 MG TAB PO SCH (20:54)
[2018-01-03] VITALS: BP 138/76; PULSE 106; RESP 20; TEMP 98.1; O2SAT 93
[2018-01-03] MEDS: D5-NS + KCL 20 MEQ INJ 1,000 ML IV SCH ×3 (00:47→05:23)
[2018-01-03] MEDS: PANTOPRAZOLE SODIUM 40 MG VIAL IVP SCH (07:06)
[2018-01-03 08:00] VITALS: BP 129/62; PULSE 77; RESP 16; TEMP 97.8; O2SAT 93
[2018-01-03] MEDS: RESP: ALBUTEROL 2.5 MG/IPRATROPIUM 0.5 MG NEB (SCH) NEB (08:00)
[2018-01-03] MEDS: PANTOPRAZOLE SOD 40 MG DELAYED RELEASE TAB PO SCH (08:49)
[2018-01-03] MEDS: cefTRIAXone INJ 1,000 MG in SODIUM CHLORIDE 0.9% INJ 100 ML IV SCH (09:10)
[2018-01-03] MEDS: AZITHROMYCIN INJ 500 MG in SODIUM CHLOR 0.9% 250 ML INJ 250 ML IV SCH (09:10)
[2018-01-03 10:57] VITALS: O2SAT 97
== END 2018-01-03 11:50 | disposition home health service (06) | DRG 329 ==
LOC: NEPC 15:35 → NEDA 18:12 → N05A 19:36 → HCPC 12-27 00:55 → PH3A 12-28 08:30 → HCPC 12-28 08:51 → N07A 12-29 13:27
PROVIDERS: ADMIT Hospitalist; ATTEND Hospitalist
PROC: 07TB0ZZ Resection of Mesenteric Lymphatic, Open Approach (ICD-10-PCS; 2017-12-26)
PROC: 0FB10ZX Excision of Right Lobe Liver, Open Approach, Diagnostic (ICD-10-PCS; 2017-12-26)
PROC: 0DJD8ZZ Inspection of Lower Intestinal Tract, Via Natural or Artificial Opening Endoscopic (ICD-10-PCS; 2017-12-26)
PROC: 0DBG0ZZ Excision of Left Large Intestine, Open Approach (ICD-10-PCS; principal; 2017-12-26 21:01)
PROC: 0DTJ0ZZ Resection of Appendix, Open Approach (ICD-10-PCS; 2017-12-26 21:01)
DX: C18.5 Malignant neoplasm of splenic flexure (principal); J18.9 Pneumonia, unspecified organism; J91.8 Pleural effusion in other conditions classified elsewhere; C78.6 Secondary malignant neoplasm of retroperitoneum and peritoneum; C78.7 Secondary malignant neoplasm of liver and intrahepatic bile duct; C77.2 Secondary and unspecified malignant neoplasm of intra-abdominal lymph nodes; I10 Essential (primary) hypertension; K57.30 Diverticulosis of large intestine without perforation or abscess without bleeding; E78.5 Hyperlipidemia, unspecified; I34.1 Nonrheumatic mitral (valve) prolapse; K59.09 Other constipation; K58.9 Irritable bowel syndrome, unspecified; R79.89 Other specified abnormal findings of blood chemistry; R09.02 Hypoxemia; R00.0 Tachycardia, unspecified; F40.240 Claustrophobia; Z80.1 Family history of malignant neoplasm of trachea, bronchus and lung; Z85.42 Personal history of malignant neoplasm of other parts of uterus; Z88.2 Allergy status to sulfonamides; Z90.710 Acquired absence of both cervix and uterus; K63.89 Other specified diseases of intestine; K76.9 Liver disease, unspecified; E78.00 Pure hypercholesterolemia, unspecified; R94.31 Abnormal electrocardiogram [ECG] [EKG]
CPT/HCPCS: 71250; 71275; 74018; 74177; 76937; 80048; 80053; 81001; 82105; 82378; 82728; 82948; 83540; 83550; 83605; 83690; 83735; 84443; 85025; 85610; 85730; 86140; 87040; 87449; 88307; 88309; 88341; 88342; 93005; 93970; 94150; 94618; 94640; 94664; 94667; 94668; 96360; 96361; 96374; 96375; C9113; J0330; J0456; J0690; J0696; J1100; J1885; J1940; J2270; J2405; J2765; J3010; J3480; J7030; J7040; J7042; J7050; J7120; Q9967